=== PATIENT | female | born 1955 | race Native Hawaiian/Other Pacific Islander ===

== ENCOUNTER 2018-02-07 18:58 | Inpatient (IN) | payer MEDICARE, OTHER ==
[~2018-02-07] VITALS: Ht 160 cm; Wt 77.4 kg
[~2018-02-07 18:58] MED LIST: ALBU8.5H8 INH; CARV6.253 PO; FURO40TA4 PO; GLYB2.5T4 PO; LISI10TA4 PO; POTA20TA10 PO
[2018-02-07] MEDS ORDERED: ipratropium/albuterol 3ml nebule NEB ONE ×2 (19:25→22:25)
[2018-02-07 19:41] LABS: BASOPHILS # (AUTO) 0.1 X10'3 (0-0.2); BASOPHILS % (AUTO) 0.5 % (0-1); EOSINOPHILS % (AUTO) 0 % (0-6); HEMATOCRIT 36.9 % (35.0-45.0); HEMOGLOBIN 12.4 g/dl (12.0-16.0); LYMPHOCYTES # (AUTO) 0.9 X10'3 (1.1-4.8); MEAN CORPUSCULAR HEMOGLOBIN 29.6 PG (27.0-31.0); MEAN CORPUSCULAR HGB CONC 33.5 % (33.0-36.5); MEAN CORPUSCULAR VOLUME 88.3 FL (78-98); MEAN PLATELET VOLUME 8.5 FL (7.4-10.4); MONOCYTES # (AUTO) 0.8 X10'3 (0-0.9); MONOCYTES % (AUTO) 6.8 % (2-12); NEUTROPHILS # (AUTO) 9.9 X10'3 (1.8-7.7); NEUTROPHILS % (AUTO) 84.7 % (42-75); PLATELET COUNT 172 X10'3 (140-440); RED BLOOD COUNT 4.18 X10'6 (4.20-5.60); RED CELL DISTRIBUTION WIDTH 14.3 % (11.5-14.5); WHITE BLOOD COUNT 11.7 X10'3 (4.5-11.0)
[2018-02-07 20:01] LABS: ALANINE AMINOTRANSFERASE 36 U/L (12-78); ALBUMIN 3.1 G/DL (3.4-5.0); ALBUMIN/GLOBULIN RATIO 0.7 (1.1-1.5); ALKALINE PHOSPHATASE 128 IU/L (46-116); ANION GAP 14 (8-16); ASPARTATE AMINO TRANSFERASE 37 U/L (10-37); BILIRUBIN,TOTAL 1.4 MG/DL (0.1-1.0); BLOOD UREA NITROGEN 63 MG/DL (7-18); BUN/CREATININE RATIO 33.5 (6.6-38.0); CALCIUM 9.3 MG/DL (8.5-10.1); CHLORIDE 106 MMOL/L (99-107); CREATININE 1.88 MG/DL (0.40-0.90); GLUCOSE 110 MG/DL (70-104); POTASSIUM 4.3 MMOL/L (3.5-5.1); SODIUM 142 MMOL/L (135-145); TOTAL CARBON DIOXIDE 22.4 MMOL/L (24-32); TOTAL PROTEIN 7.5 G/DL (6.4-8.2); eGFR 27 ML/MIN
[2018-02-07 20:06] LABS: PARTIAL THROMBOPLASTIN TIME 32 SECONDS (22-32); PROTHROMBIN TIME 10.1 SECONDS (9.0-12.0)
[2018-02-07] MEDS ORDERED: furosemide 10 MG/1 ML 10ml inj IV ONE (20:30)
[2018-02-07] MEDS ORDERED: DOBUTamine-DoBUTrex 500mg/D5W 250 ML IV PRN (22:00)
[2018-02-07] MEDS ORDERED: normal saline 1000ML IV soln IVB ONE (22:05)
[2018-02-07 22:24] LABS: PLATELET ESTIMATE NORMAL; TOTAL CELLS COUNTED 100; TOXIC GRANULATION 2+; TOXIC VACUOLATION 1+
[2018-02-08] VITALS (14 sets, daily range): BP systolic 95–158; BP diastolic 37–65
[2018-02-08 00:13] LABS: CLARITY,URINE CLOUDY (Clear); GLUCOSE, URINE NEGATIVE (Neg); KETONES,URINE NEGATIVE (Neg); LEUKOCYTE ESTERASE ,URINE SMALL (Neg); NITRITES, URINE NEGATIVE (Neg); OCCULT BLOOD,URINE NEGATIVE (Neg); PROTEIN,URINE 30 mg/dl (Neg)
[2018-02-08 00:24] LABS: COLOR,URINE DARK YELLOW (Yellow); UA COLLECTION TYPE STRAIGHT CATH
[2018-02-08] MEDS: DOBUTamine-DoBUTrex 500mg/D5W 250 ML IV SCH ×2 (00:25→07:35)
[2018-02-08 00:27] LABS: WBC,URINE 20-30 /HPF (0-4)
[2018-02-08 00:28] LABS: BACTERIA,URINE 4+ /HPF (Neg); HYALINE CASTS >30 /LPF (NEGATIVE); MUCUS STRANDS FEW /LPF (Neg); RBC,URINE NONE SEEN /HPF (0-2); SQUAMOUS EPITHELIAL CELL,UR FEW /LPF (FEW); TRANSITIONAL EPI CELLS,URINE FEW /HPF
[2018-02-08 00:29] LABS: WBC CLUMPS,URINE MODERATE /HPF (NEGATIVE)
[2018-02-08] MEDS ORDERED: CefTRIAXone 2gm/D5W 50ml 50 ML IV ONE (06:15)
[2018-02-08 06:26] LABS: ABG BASE EXCESS -4.9 mmol/L (-2.0-3.0); ABG HCO3 21.4 mmol/L (22.0-26.0); ABG OXYGEN SATURATION 92.9 % (95-98); ABG PCO2 (T) 43.6 mmHg (32.0-45.0); ABG PH (T) 7.306 (7.350-7.450); ABG PO2 (T) 69.2 mmHg (83-108); FCOHb 1.1 % (0.5-1.5); FLOW 2 L/min; FMetHb 0.1 % (0.3-1.12); FO2Hb 91.8 % (94-100); PATIENT TEMPERATURE 36.7; RESPIRATORY RATE (OBSERVED) 24 b/min; TOTAL HEMOGLOBIN 12.4 G/dl (12.0-16.0)
[2018-02-08] MEDS ORDERED: lisinopril 2.5mg tablet PO ONE (10:05)
[2018-02-08] MEDS ORDERED: pneumococcal 23-VAL P-sac vacc 25 mcg/0.5ml vial IMVAC ONE (13:00)
[2018-02-08] MEDS: methylPREDNISolone sod succ 125mg/2ml vial IV SCH ×2 (14:37→19:54)
[2018-02-08] MEDS: albuterol 2.5 MG/3 ML nebule NEB PRN ×2 (15:24→22:07)
[2018-02-08] MEDS ORDERED: dextrose 50%-water 50ml dispensing syringe IV PRN ×2 (17:20)
[2018-02-08] MEDS ORDERED: dextrose ORAL solution 15 GM/59 ML bottle PO PRN (17:20)
[2018-02-08] MEDS ORDERED: MESSAGE TO PHARMACY PO ONE (17:20)
[2018-02-08] MEDS ORDERED: glucagon, human recombinant 1mg kit SUBCUT PRN (17:20)
[2018-02-08] MEDS: dextrose ORAL solution 15 GM/59 ML bottle PO PRN ×2 (17:25→17:40)
[2018-02-08] MEDS: lisinopril 2.5mg tablet PO SCH (19:54)
[2018-02-08] MEDS: carVEDilol 3.125mg tablet PO SCH (19:55)
[2018-02-08] MEDS: insulin Lispro (HumaLOG) vial - multi-dose SQ SCH (20:08)
[2018-02-08] MEDS: insulin glargine (Lantus) pen - multi-dose SQ SCH (20:09)
[2018-02-08] MEDS ORDERED: DOBUTamine-DoBUTrex 500mg/D5W 250 ML IV PRN (22:00)
[2018-02-09] VITALS (19 sets, daily range): BP systolic 91–136; BP diastolic 43–77
[2018-02-09] MEDS: methylPREDNISolone sod succ 125mg/2ml vial IV SCH ×2 (02:27→08:14)
[2018-02-09] MEDS ORDERED: HYDROcodone/acetaminophen 10/325mg tab PO PRN (02:45)
[2018-02-09 02:52] LABS: BASOPHILS % (AUTO) 0.1 % (0-1); EOSINOPHILS # (AUTO) 0.1 X10'3 (0-0.9); EOSINOPHILS % (AUTO) 1.1 % (0-6); HEMATOCRIT 34.7 % (35.0-45.0); HEMOGLOBIN 11.5 g/dl (12.0-16.0); LYMPHOCYTES # (AUTO) 0.4 X10'3 (1.1-4.8); LYMPHOCYTES % (AUTO) 4.9 % (21-51); MEAN CORPUSCULAR HEMOGLOBIN 29.7 PG (27.0-31.0); MEAN CORPUSCULAR HGB CONC 33.2 % (33.0-36.5); MEAN CORPUSCULAR VOLUME 89.4 FL (78-98); MEAN PLATELET VOLUME 8.5 FL (7.4-10.4); MONOCYTES # (AUTO) 0.1 X10'3 (0-0.9); MONOCYTES % (AUTO) 0.8 % (2-12); NEUTROPHILS # (AUTO) 7.9 X10'3 (1.8-7.7); NEUTROPHILS % (AUTO) 93.1 % (42-75); PLATELET COUNT 169 X10'3 (140-440); RED BLOOD COUNT 3.88 X10'6 (4.20-5.60); RED CELL DISTRIBUTION WIDTH 14.3 % (11.5-14.5); WHITE BLOOD COUNT 8.5 X10'3 (4.5-11.0)
[2018-02-09] MEDS: guaiFENesin 200 MG/10 ML oral syrup UD cup PO PRN (02:59)
[2018-02-09] MEDS: HYDROcodone/acetaminophen 5mg/325mg tablet PO PRN ×3 (03:00→14:22)
[2018-02-09 03:08] LABS: ALANINE AMINOTRANSFERASE 72 U/L (12-78); ALBUMIN 2.6 G/DL (3.4-5.0); ALBUMIN/GLOBULIN RATIO 0.6 (1.1-1.5); ALKALINE PHOSPHATASE 180 IU/L (46-116); ANION GAP 11 (8-16); ASPARTATE AMINO TRANSFERASE 79 U/L (10-37); BILIRUBIN,TOTAL 0.4 MG/DL (0.1-1.0); BLOOD UREA NITROGEN 46 MG/DL (7-18); BUN/CREATININE RATIO 35.9 (6.6-38.0); CALCIUM 9.3 MG/DL (8.5-10.1); CHLORIDE 108 MMOL/L (99-107); CREATININE 1.28 MG/DL (0.40-0.90); GLUCOSE 229 MG/DL (70-104); MAGNESIUM 2.4 MG/DL (1.5-2.4); POTASSIUM 4.4 MMOL/L (3.5-5.1); SODIUM 143 MMOL/L (135-145); TOTAL CARBON DIOXIDE 23.7 MMOL/L (24-32); TOTAL PROTEIN 7.1 G/DL (6.4-8.2); eGFR 42 ML/MIN
[2018-02-09 03:11] LABS: HEMOGLOBIN A1C 5.6 % (4.5-6.2)
[2018-02-09] MEDS ORDERED: FURO-149 PO (07:34)
[2018-02-09] MEDS ORDERED: GLYB2.5T4 PO (07:34)
[2018-02-09] MEDS ORDERED: CARV-49 PO (07:34)
[2018-02-09] MEDS ORDERED: ALBU8.5H8 INH (07:34)
[2018-02-09] MEDS ORDERED: LISI10TA4 PO (07:34)
[2018-02-09] MEDS ORDERED: POTA-82 PO (07:34)
[2018-02-09] MEDS: carVEDilol 3.125mg tablet PO SCH (08:13)
[2018-02-09] MEDS: lisinopril 2.5mg tablet PO SCH (08:13)
[2018-02-09] MEDS: insulin Lispro (HumaLOG) vial - multi-dose SQ SCH ×2 (08:17→13:13)
[2018-02-09] MEDS ORDERED: CefTRIAXone/D5W-Rocephin 1gm 50 ML IV ONE (11:30)
[2018-02-09] MEDS: albuterol 2.5 MG/3 ML nebule NEB PRN ×2 (11:47→20:58)
[2018-02-09] MEDS: pantoprazole 40mg Tablet.DR PO SCH (12:22)
[2018-02-09] MEDS: heparin, porcine 5000 units/ml vial SQ SCH ×2 (12:22→19:47)
[2018-02-09] MEDS ORDERED: aminophylline 250mg/10ml inj. IV PRN (15:40)
[2018-02-09] MEDS ORDERED: metoprolol tartrate 1mg/ml inj IV PRN (15:40)
[2018-02-09] MEDS ORDERED: nitroGLYCERIN 0.4mg SUBLingual tab SL PRN (15:40)
[2018-02-09] MEDS ORDERED: regadenoson 0.4mg/5ml syringe IV PRN (15:40)
[2018-02-09] MEDS: predniSONE 20 mg tablet PO SCH (19:47)
[2018-02-09] MEDS: losartan 25mg tablet PO SCH (19:48)
[2018-02-09] MEDS: metoprolol tartrate 12.5mg (1/2 tablet) PO SCH (19:48)
[2018-02-09] MEDS: insulin glargine (Lantus) pen - multi-dose SQ SCH (21:44)
[2018-02-10] VITALS (16 sets, daily range): BP systolic 113–155; BP diastolic 51–75
[2018-02-10 05:37] LABS: ALBUMIN 2.5 G/DL (3.4-5.0); ANION GAP 8 (8-16); BLOOD UREA NITROGEN 49 MG/DL (7-18); BUN/CREATININE RATIO 40.5 (6.6-38.0); CALCIUM 9.7 MG/DL (8.5-10.1); CHLORIDE 109 MMOL/L (99-107); CREATININE 1.21 MG/DL (0.40-0.90); GLUCOSE 195 MG/DL (70-104); MAGNESIUM 2.6 MG/DL (1.5-2.4); POTASSIUM 4.7 MMOL/L (3.5-5.1); SODIUM 143 MMOL/L (135-145); TOTAL CARBON DIOXIDE 26.2 MMOL/L (24-32); eGFR 45 ML/MIN
[2018-02-10] MEDS: insulin Lispro (HumaLOG) vial - multi-dose SQ SCH ×3 (07:35→19:27)
[2018-02-10] MEDS: losartan 25mg tablet PO SCH ×2 (07:42→19:28)
[2018-02-10] MEDS: predniSONE 20 mg tablet PO SCH ×2 (07:42→19:28)
[2018-02-10] MEDS: heparin, porcine 5000 units/ml vial SQ SCH ×2 (07:43→19:28)
[2018-02-10] MEDS: pantoprazole 40mg Tablet.DR PO SCH (07:43)
[2018-02-10] MEDS: guaiFENesin 200 MG/10 ML oral syrup UD cup PO PRN (07:53)
[2018-02-10] MEDS: metoprolol tartrate 12.5mg (1/2 tablet) PO SCH ×2 (08:00→19:28)
[2018-02-10] MEDS: albuterol 2.5 MG/3 ML nebule NEB PRN (09:03)
[2018-02-10] MEDS ORDERED: aminophylline inj. 10 ML IV ONE (10:00)
[2018-02-10] MEDS ORDERED: regadenoson 0.4mg/5ml syringe IV ONE (10:01)
[2018-02-10] MEDS ORDERED: LOSA25TA12 PO (12:37)
[2018-02-10] MEDS: insulin glargine (Lantus) pen - multi-dose SQ SCH (21:53)
[2018-02-11 03:00] VITALS: BP 106/55
[2018-02-11 07:00] VITALS: BP 159/74
[2018-02-11] MEDS: losartan 25mg tablet PO SCH (07:31)
[2018-02-11] MEDS: heparin, porcine 5000 units/ml vial SQ SCH (07:31)
[2018-02-11 07:32] VITALS: BP_SYST 159
[2018-02-11] MEDS: metoprolol tartrate 12.5mg (1/2 tablet) PO SCH (07:32)
[2018-02-11] MEDS: pantoprazole 40mg Tablet.DR PO SCH (07:32)
[2018-02-11] MEDS: predniSONE 20 mg tablet PO SCH (07:33)
[2018-02-11] MEDS: insulin Lispro (HumaLOG) vial - multi-dose SQ SCH ×2 (08:19→13:31)
[2018-02-11] MEDS: albuterol 2.5 MG/3 ML nebule NEB PRN (09:47)
[2018-02-11] MEDS: HYDROcodone/acetaminophen 5mg/325mg tablet PO PRN (14:56)
== END 2018-02-11 15:05 | disposition home or self-care (01) | DRG 871 ==
LOC: ER 18:59 → ED HOLD 02-08 07:45 → ICU 2S 02-08 09:42 → PCU 3S 02-09 14:30
PROVIDERS: ADMIT Internal Medicine Critical Care Medicine; ATTEND Internal Medicine Critical Care Medicine
PROC: 06HM33Z Insertion of Infusion Device into Right Femoral Vein, Percutaneous Approach (ICD-10-PCS; 2018-02-07)
PROC: 3E02340 Introduction of Influenza Vaccine into Muscle, Percutaneous Approach (ICD-10-PCS; principal; 2018-02-10)
PROC: 3E0234Z Introduction of Serum, Toxoid and Vaccine into Muscle, Percutaneous Approach (ICD-10-PCS; 2018-02-10)
PROC: 4A02XM4 Measurement of Cardiac Total Activity, External Approach (ICD-10-PCS; 2018-02-10)
PROC: 3E033HZ Introduction of Radioactive Substance into Peripheral Vein, Percutaneous Approach (ICD-10-PCS; 2018-02-10)
DX: A41.9 Sepsis, unspecified organism (principal); I50.23 Acute on chronic systolic (congestive) heart failure; N17.9 Acute kidney failure, unspecified; J44.1 Chronic obstructive pulmonary disease with (acute) exacerbation; N39.0 Urinary tract infection, site not specified; I13.0 Hypertensive heart and chronic kidney disease with heart failure and stage 1 through stage 4 chronic kidney disease, or unspecified chronic kidney disease; N18.9 Chronic kidney disease, unspecified; E07.9 Disorder of thyroid, unspecified; I95.9 Hypotension, unspecified; E11.22 Type 2 diabetes mellitus with diabetic chronic kidney disease; R06.03 Acute respiratory distress; F17.210 Nicotine dependence, cigarettes, uncomplicated; F32.9 Major depressive disorder, single episode, unspecified; F41.9 Anxiety disorder, unspecified; I48.0 Paroxysmal atrial fibrillation; I48.2 Chronic atrial fibrillation; Z23 Encounter for immunization; Z90.710 Acquired absence of both cervix and uterus; Z79.899 Other long term (current) drug therapy; Z87.01 Personal history of pneumonia (recurrent); Z82.5 Family history of asthma and other chronic lower respiratory diseases; Z83.3 Family history of diabetes mellitus
CPT/HCPCS: 36415; 36556; 36600; 70490; 71045; 71250; 74176; 78452; 80048; 80053; 81001; 82803; 82948; 83036; 83605; 83735; 83880; 84484; 85018; 85025; 85610; 85730; 87040; 87070; 87077; 87088; 87186; 90732; 93005; 93017; 93306; 94640; 94667; 94760; 96365; 96375; 97116; 97162; 97530; 99285; A9500; G0378; J0280; J0696; J1250; J1644; J1815; J1940; J2930; J7512; Q2037

== ENCOUNTER 2018-02-14 09:46 | Outpatient (CLI) | payer MEDICARE, OTHER ==
[~2018-02-14 09:46] MED LIST changes: +CARV-49 PO; -CARV6.253 PO; +FURO-149 PO; -FURO40TA4 PO; -LISI10TA4 PO; +LOSA25TA12 PO; +POTA-82 PO; -POTA20TA10 PO
== END 2018-02-14 23:59 | disposition home or self-care (01) ==
LOC: RAD 09:46
PROVIDERS: ATTEND Internal Medicine Critical Care Medicine
DX: E04.1 Nontoxic single thyroid nodule (principal); J44.9 Chronic obstructive pulmonary disease, unspecified; I11.0 Hypertensive heart disease with heart failure; I50.9 Heart failure, unspecified; E11.9 Type 2 diabetes mellitus without complications; Z87.891 Personal history of nicotine dependence
CPT/HCPCS: 78014; A9516

== ENCOUNTER 2019-07-05 22:25 | Emergency (ER) | payer MEDICARE ==
[~2019-07-05] VITALS: Ht 160 cm; Wt 72.0 kg
[~2019-07-05 22:25] MED LIST changes: -LOSA25TA12 PO
[2019-07-05 23:22] LABS: BASOPHILS # (AUTO) 0.1 X10'3 (0-0.2); BASOPHILS % (AUTO) 0.7 % (0-1); EOSINOPHILS % (AUTO) 0.2 % (0-6); HEMATOCRIT 34.7 % (35.0-45.0); HEMOGLOBIN 11.3 g/dl (12.0-16.0); LYMPHOCYTES # (AUTO) 1.2 X10'3 (1.1-4.8); LYMPHOCYTES % (AUTO) 12.9 % (21-51); MEAN CORPUSCULAR HEMOGLOBIN 26.8 PG (27.0-31.0); MEAN CORPUSCULAR HGB CONC 32.4 g/dL (33.0-36.5); MEAN CORPUSCULAR VOLUME 82.5 FL (78-98); MEAN PLATELET VOLUME 7.5 FL (7.4-10.4); MONOCYTES # (AUTO) 0.7 X10'3 (0-0.9); MONOCYTES % (AUTO) 7.9 % (2-12); NEUTROPHILS # (AUTO) 7.3 X10'3 (1.8-7.7); NEUTROPHILS % (AUTO) 78.3 % (42-75); PLATELET COUNT 377 X10'3 (140-440); WHITE BLOOD COUNT 9.3 X10'3 (4.5-11.0)
[2019-07-05 23:26] LABS: ALANINE AMINOTRANSFERASE 12 U/L (12-78); ALBUMIN 2.5 G/DL (3.4-5.0); ALBUMIN/GLOBULIN RATIO 0.5 (1.1-1.5); ALKALINE PHOSPHATASE 236 IU/L (46-116); ANION GAP 9 (8-16); ASPARTATE AMINO TRANSFERASE 30 U/L (10-37); BILIRUBIN,TOTAL 0.3 MG/DL (0.1-1.0); BLOOD UREA NITROGEN 13 MG/DL (7-18); BUN/CREATININE RATIO 12.1 (6.6-38.0); CHLORIDE 108 MMOL/L (99-107); CREATININE 1.07 MG/DL (0.40-0.90); GLUCOSE 137 MG/DL (70-104); POTASSIUM 3.5 MMOL/L (3.5-5.1); SODIUM 142 MMOL/L (135-145); TOTAL CARBON DIOXIDE 25.3 MMOL/L (24-32); TOTAL PROTEIN 7.2 G/DL (6.4-8.2); eGFR 52 ML/MIN
[2019-07-05 23:32] LABS: C-REACTIVE PROTEIN 8.04 MG/DL (0.0-0.5); TROPONIN I < 0.04 NG/ML (0.0-0.05)
[2019-07-06] MEDS ORDERED: acetaminophen 325mg tablet PO ONE (00:05)
[2019-07-06 00:55] VITALS: BP 130/86
== END 2019-07-06 01:02 | disposition home or self-care (01) ==
LOC: ER 22:27
DX: J06.9 Acute upper respiratory infection, unspecified (principal); Z20.828 Contact with and (suspected) exposure to other viral communicable diseases; R07.89 Other chest pain; R05 Cough; R07.81 Pleurodynia; I48.91 Unspecified atrial fibrillation; I11.0 Hypertensive heart disease with heart failure; I50.9 Heart failure, unspecified; J44.9 Chronic obstructive pulmonary disease, unspecified; E11.9 Type 2 diabetes mellitus without complications; F41.9 Anxiety disorder, unspecified; F32.9 Major depressive disorder, single episode, unspecified; Z90.710 Acquired absence of both cervix and uterus; Z72.89 Other problems related to lifestyle; Z79.899 Other long term (current) drug therapy
CPT/HCPCS: 36415; 71045; 80053; 83880; 84145; 84484; 85025; 86140; 87635; 93005; 99285

== ENCOUNTER 2019-12-19 19:00 | Inpatient (IN) | payer MEDICARE, MEDICAID ==
[~2019-12-19] VITALS: Ht 160 cm; Wt 57.6 kg
[~2019-12-19 19:00] MED LIST changes: +ATR0.5NEB NEB; -CARV-49 PO; +CARV6.253 PO; -GLYB2.5T4 PO; +LISI-600 PO
--- NOTE | 2019-12-19 21:42 | NUR ---
PT BP LOW AFTER A FEW ATTEMPTS, 80/44. PRIMARY RN AND PIERRE MEDRANO ALERTED. PLACED PT IN REVERSE TRENDELENBERG. PT REPORTS NO SYMPTOMS AT THIS TIME.
[2019-12-19] MEDS ORDERED: normal saline 1000ML IV soln IVB ONE ×3 (21:55→23:35)
--- NOTE | 2019-12-19 22:01 | NUR ---
CALLED PT DAUGHTER, JAXSON, TO CONFIRM PT STORY. PT ACTUALLY FELL 2 DAYS AGO AND WAS DOWN FOR AN UNKNOWN AMOUNT OF TIME AND DAUGHTER STATES PT DID NOT REMEMBER HOW SHE FELL. SINCE THEN PT HAS BEEN COMPLAINING OF IMMENSE BACK PAIN AND NUMBNESS IN HER LEGS. DAUGHTER STATES PT CAN USUALLY WALK WITH A WALKER JUST FINE, BUT HAS NOT BEEN ABLE TO WALK SINCE THE FALL AND HAVING TROUBLE GETTING IN AND OUT OF BED. PIERRE MEDRANO AND PRIMARY RN AWARE
[2019-12-19 22:22] LABS: BASOPHILS # (AUTO) 0.1 X10'3 (0-0.2); BASOPHILS % (AUTO) 0.3 % (0-1); EOSINOPHILS % (AUTO) 0.2 % (0-6); HEMATOCRIT 30.2 % (35.0-45.0); HEMOGLOBIN 9.4 g/dl (12.0-16.0); LYMPHOCYTES # (AUTO) 1.1 X10'3 (1.1-4.8); LYMPHOCYTES % (AUTO) 4.6 % (21-51); MEAN CORPUSCULAR HEMOGLOBIN 26.2 PG (27.0-31.0); MEAN CORPUSCULAR VOLUME 84.3 FL (78-98); MEAN PLATELET VOLUME 7.1 FL (7.4-10.4); MONOCYTES # (AUTO) 1.3 X10'3 (0-0.9); MONOCYTES % (AUTO) 5.4 % (2-12); NEUTROPHILS # (AUTO) 21.9 X10'3 (1.8-7.7); NEUTROPHILS % (AUTO) 89.5 % (42-75); PLATELET COUNT 369 X10'3 (140-440); RED BLOOD COUNT 3.58 X10'6 (4.20-5.60); WHITE BLOOD COUNT 24.4 X10'3 (4.5-11.0)
[2019-12-19 22:31] LABS: PARTIAL THROMBOPLASTIN TIME 28 SECONDS (22-32)
[2019-12-19 22:33] LABS: ALANINE AMINOTRANSFERASE 10 U/L (12-78); ALBUMIN 2.4 G/DL (3.4-5.0); ALBUMIN/GLOBULIN RATIO 0.5 (1.1-1.5); ALKALINE PHOSPHATASE 115 IU/L (46-116); ANION GAP 7 (8-16); ASPARTATE AMINO TRANSFERASE 17 U/L (10-37); BILIRUBIN,TOTAL 0.8 MG/DL (0.1-1.0); BLOOD UREA NITROGEN 33 MG/DL (7-18); BUN/CREATININE RATIO 15.1 (6.6-38.0); CALCIUM 8.8 MG/DL (8.5-10.1); CHLORIDE 103 MMOL/L (99-107); CREATININE 2.19 MG/DL (0.40-0.90); GLUCOSE 127 MG/DL (70-104); POTASSIUM 3.4 MMOL/L (3.5-5.1); SODIUM 141 MMOL/L (135-145); TOTAL CARBON DIOXIDE 30.6 MMOL/L (24-32); TOTAL PROTEIN 7.3 G/DL (6.4-8.2); eGFR 23 ML/MIN
[2019-12-19] MEDS ORDERED: piperacillin/tazo 3.375gm/50ml 50 ML IV ONE (23:15)
[2019-12-19] MEDS ORDERED: vancomycin/NS 1 GM ADD-VANTAGE 250 ML IV ONE (23:15)
[2019-12-19] MEDS ORDERED: CefTRIAXone/D5W-Rocephin 1gm 50 ML IV ONE (23:35)
[2019-12-19] MEDS ORDERED: azithromycin/NS 500mg/250ml 250 ML IV ONE (23:35)
--- NOTE | 2019-12-19 23:41 | NUR ---
ASSISTING RN WITH PT CARE, PT IS LYING QUIETLY ON GURNEY, RESP EVEN AND SHALLOW, PT OPENS EYES TO VOICE, 2ND LITER NS INFUSING W/O, IN AND OUT CATH DONE WITH STERILE TECHNIQUE, 10ML OF URINE WAS TOTAL OUTPUT, SAMPLE SENT TO LAB, PT MITCH PROCEDURE WELL, CLEANED PT OF SCANT AMOUNT OF DRIED FECES, SKIN BREAKDOWN TO BUTTOCK, PICTURE WAS TAKEN, REPORT TO GIOVANNI TREVINO
[2019-12-20] VITALS (20 sets, daily range): BP systolic 91–127; BP diastolic 46–70
[2019-12-20] LABS: CLARITY,URINE SLIGHTLY CLOUDY (Clear); COLOR,URINE YELLOW (Yellow); GLUCOSE, URINE NEGATIVE (Neg); KETONES,URINE NEGATIVE (Neg); LEUKOCYTE ESTERASE ,URINE NEGATIVE (Neg); NITRITES, URINE NEGATIVE (Neg); OCCULT BLOOD,URINE TRACE-INTACT (Neg); PH,URINE 5.5 (4.8-8.0); PROTEIN,URINE 30 mg/dl (Neg)
[2019-12-20 00:09] LABS: UA COLLECTION TYPE FOLEY CATH
[2019-12-20 00:16] LABS: BACTERIA,URINE FEW /HPF (Neg); RBC,URINE 0-2 /HPF (0-2); SQUAMOUS EPITHELIAL CELL,UR FEW /LPF (FEW); WBC,URINE 0-4 /HPF (0-4)
[2019-12-20] MEDS ORDERED: phenylephrine inj 50 MG in normal saline 250ml IV soln 245 ML IV PRN (02:12)
[2019-12-20] MEDS ORDERED: NORepinephrine 8mg/ 250ml NS 250 ML IV PRN ×2 (02:13→03:01)
[2019-12-20] MEDS ORDERED: ondansetron/PF 4mg/2ml inj IV PRN (03:05)
[2019-12-20] MEDS ORDERED: albuterol 2.5 MG/3 ML nebule NEB PRN (03:05)
[2019-12-20] MEDS ORDERED: acetaminophen 325mg tablet PO PRN (03:05)
[2019-12-20] MEDS ORDERED: acetaminophen 650mg rectal suppository RC PRN (03:05)
--- NOTE | 2019-12-20 04:20 | NUR ---
Received report from Yuval RN and Natanael RN. Transferred via gurney from ED to CICU 2013. All personal belongings placed at bedside. Special Issues communicated to receiving nurse.
[2019-12-20 04:42] LABS: BASOPHILS # (AUTO) 0.1 X10'3 (0-0.2); BASOPHILS % (AUTO) 0.3 % (0-1); EOSINOPHILS % (AUTO) 0.2 % (0-6); HEMATOCRIT 26.9 % (35.0-45.0); HEMOGLOBIN 8.5 g/dl (12.0-16.0); LYMPHOCYTES # (AUTO) 1.2 X10'3 (1.1-4.8); LYMPHOCYTES % (AUTO) 4.4 % (21-51); MEAN CORPUSCULAR HEMOGLOBIN 26.8 PG (27.0-31.0); MEAN CORPUSCULAR HGB CONC 31.6 g/dL (33.0-36.5); MEAN PLATELET VOLUME 7.4 FL (7.4-10.4); MONOCYTES # (AUTO) 1.4 X10'3 (0-0.9); MONOCYTES % (AUTO) 4.9 % (2-12); NEUTROPHILS # (AUTO) 25.3 X10'3 (1.8-7.7); NEUTROPHILS % (AUTO) 90.2 % (42-75); PLATELET COUNT 388 X10'3 (140-440); RED BLOOD COUNT 3.16 X10'6 (4.20-5.60); RED CELL DISTRIBUTION WIDTH 18.4 % (11.5-14.5)
[2019-12-20 04:48] LABS: WHITE BLOOD COUNT 28.1 X10'3 (4.5-11.0)
[2019-12-20] MEDS: normal saline 1000ml 1,000 ML IV SCH ×2 (04:52→16:44)
[2019-12-20 04:58] LABS: ALANINE AMINOTRANSFERASE 8 U/L (12-78); ALBUMIN 1.9 G/DL (3.4-5.0); ALBUMIN/GLOBULIN RATIO 0.4 (1.1-1.5); ALKALINE PHOSPHATASE 165 IU/L (46-116); ANION GAP 6 (8-16); ANISOCYTOSIS 2+; ASPARTATE AMINO TRANSFERASE 14 U/L (10-37); BILIRUBIN,TOTAL 0.6 MG/DL (0.1-1.0); BLOOD UREA NITROGEN 29 MG/DL (7-18); BUN/CREATININE RATIO 16.3 (6.6-38.0); CALCIUM 7.9 MG/DL (8.5-10.1); CHLORIDE 107 MMOL/L (99-107); CREATININE 1.78 MG/DL (0.40-0.90); GLUCOSE 148 MG/DL (70-104); PLATELET ESTIMATE NORMAL; POTASSIUM 3.2 MMOL/L (3.5-5.1); SODIUM 142 MMOL/L (135-145); TOTAL CARBON DIOXIDE 29.3 MMOL/L (24-32); TOTAL CELLS COUNTED 100; TOTAL PROTEIN 6.2 G/DL (6.4-8.2); eGFR 29 ML/MIN
[2019-12-20 05:07] LABS: MAGNESIUM 1.8 MG/DL (1.5-2.4); PHOSPHORUS 4.3 MG/DL (2.3-4.5)
--- NOTE | 2019-12-20 06:20 | NUR ---
Patient in room CICU 2013. I have received report from Emily TREVINO and had the opportunity to ask questions and assume patient care.
--- NOTE | 2019-12-20 06:20 | NUR ---
Problems reprioritized. Patient report given, questions answered & plan of care reviewed with BELINDA Rodríguez.
--- NOTE | 2019-12-20 06:35 | NUR ---
Pt's levophed gtt drip turned down to .09 mcg/kg/min. BP 97/59 (70). Will continue to monitor.
--- NOTE | 2019-12-20 06:45 | NUR ---
Levophed turned down to .08mcg/kg/min. BP 112/58 (75). Will continue to monitor.
--- NOTE | 2019-12-20 08:34 | NUR ---
Levophed decreased to 0.06mcg/kg/min. BP 102/56 (70) Will continue to monitor
[2019-12-20] MEDS: pantoprazole 40 MG vial IV SCH (08:46)
[2019-12-20] MEDS: heparin, porcine 5000 units/ml vial SQ SCH ×2 (08:46→19:27)
[2019-12-20] MEDS: docusate sod 100mg capsule PO SCH ×2 (09:00→19:26)
[2019-12-20] MEDS: ipratropium/albuterol 3ml nebule NEB SCH ×3 (09:33→20:06)
[2019-12-20] MEDS ORDERED: potassium CL 10mEq/100ml bag 100 ML IV PRN (09:50)
[2019-12-20] MEDS ORDERED: magnesium 4gm in 100ml NS 100 ML IV PRN (09:50)
[2019-12-20] MEDS ORDERED: potassium Cl 20 mEq SR tablet PO PRN (09:50)
--- NOTE | 2019-12-20 09:54 | NUR ---
Leveophed decreased to .05mcg/hg/min. BP: 116/58 (87)
[2019-12-20] MEDS: potassium Cl 20 mEq SR tablet PO PRN ×3 (10:10→19:26)
--- NOTE | 2019-12-20 10:38 | NUR ---
Levophed gtt decreased to .04mcg/kg/min. BP: 119/60. Will continue to monitor
--- NOTE | 2019-12-20 11:07 | NUR ---
Levophed gtt decreased to 0.03mcg/kg/min. BP: 107/54 (71) will continue to monitor.
[2019-12-20] MEDS ORDERED: FLUT1BLS12 IH (11:09)
--- NOTE | 2019-12-20 11:33 | NUR ---
Levophed decreased to .02mcg/kg/min. BP: 106/62 (77)
--- NOTE | 2019-12-20 12:39 | NUR ---
Levophed decreased to .01mcg/kg/min. BP: 111/45 (67)
--- NOTE | 2019-12-20 14:15 | NUR ---
Initial: Pt admit with PNA and sepsis. Pt with PMH hx T2DM, current A1c is 5.5% and patient's highest A1c was 6.8% in 2015. No diet order at this time. Recommend PO diet advancement to heart healthy as medically indicated. No documented BM though pt receiving routine bowel care. Will continue to follow closely and monitor need for nutrition intervention pending diet advancement. Recommendations: 1) Advance to heart healthy diet as medically indicated 2) Monitor need for ONS/additional protein with diet advancement 3) Routine bowel care 4) Scaled weights per rx Addendum: 12/20/19 at [address] Amended: Links added.
--- NOTE | 2019-12-20 14:23 | NUR ---
Levophed drip turned off. BP: 99/42 (71) Will continue to monitor Pt
--- NOTE | 2019-12-20 18:08 | NUR ---
Problems reprioritized. Patient report given, questions answered & plan of care reviewed with Emily TREVINO.
[2019-12-20] MEDS: lactobacillus rhamnosus 10,000 MMU CELLS/CAPSULE PO SCH (19:26)
[2019-12-20] MEDS: K and/or MAG REPLACEMENT MC SCH (19:27)
[2019-12-20] MEDS: acetaminophen 325mg tablet PO PRN (19:42)
[2019-12-20] MEDS: furosemide 40mg tablet PO SCH (19:44)
[2019-12-20] MEDS: carvedilol 6.25mg tablet PO SCH (19:44)
[2019-12-20] MEDS: albuterol 2.5 MG/3 ML nebule NEB SCH (20:00)
[2019-12-20] MEDS: budesonide 0.5mg/2ml UD nebule IH SCH (20:06)
[2019-12-20] MEDS ORDERED: glucagon, human recombinant 1mg kit SUBCUT PRN (22:05)
[2019-12-20] MEDS ORDERED: insulin Lispro (HumaLOG) vial - multi-dose SQ SCH (22:05)
[2019-12-20] MEDS ORDERED: dextrose 50%-water 50ml dispensing syringe IV PRN ×2 (22:05)
[2019-12-20] MEDS ORDERED: dextrose ORAL solution 15 GM/59 ML bottle PO PRN ×2 (22:05)
[2019-12-21] VITALS (16 sets, daily range): BP systolic 88–112; BP diastolic 46–71
[2019-12-21] MEDS: CefTRIAXone 2gm/D5W 50ml 50 ML IV SCH ×2 (00:13→22:26)
[2019-12-21] MEDS: albuterol 2.5 MG/3 ML nebule NEB SCH (00:30)
[2019-12-21] MEDS: azithromycin/NS 500mg/250ml 250 ML IV SCH ×2 (00:48→23:56)
[2019-12-21] MEDS: acetaminophen 325mg tablet PO PRN (01:46)
[2019-12-21 03:54] LABS: BASOPHILS # (AUTO) 0.1 X10'3 (0-0.2); BASOPHILS % (AUTO) 0.3 % (0-1); EOSINOPHILS # (AUTO) 0.1 X10'3 (0-0.9); EOSINOPHILS % (AUTO) 0.2 % (0-6); HEMATOCRIT 26.9 % (35.0-45.0); HEMOGLOBIN 8.5 g/dl (12.0-16.0); LYMPHOCYTES # (AUTO) 0.8 X10'3 (1.1-4.8); LYMPHOCYTES % (AUTO) 2.8 % (21-51); MEAN CORPUSCULAR HGB CONC 31.6 g/dL (33.0-36.5); MEAN CORPUSCULAR VOLUME 85.6 FL (78-98); MEAN PLATELET VOLUME 7.9 FL (7.4-10.4); MONOCYTES # (AUTO) 1.1 X10'3 (0-0.9); MONOCYTES % (AUTO) 4.1 % (2-12); NEUTROPHILS # (AUTO) 25.5 X10'3 (1.8-7.7); NEUTROPHILS % (AUTO) 92.6 % (42-75); PLATELET COUNT 318 X10'3 (140-440); RED BLOOD COUNT 3.15 X10'6 (4.20-5.60); RED CELL DISTRIBUTION WIDTH 18.1 % (11.5-14.5)
[2019-12-21 04:02] LABS: WHITE BLOOD COUNT 27.5 X10'3 (4.5-11.0)
[2019-12-21 04:05] LABS: ALANINE AMINOTRANSFERASE 8 U/L (12-78); ALBUMIN 1.9 G/DL (3.4-5.0); ALBUMIN/GLOBULIN RATIO 0.4 (1.1-1.5); ALKALINE PHOSPHATASE 104 IU/L (46-116); ANION GAP 9 (8-16); ASPARTATE AMINO TRANSFERASE 17 U/L (10-37); BILIRUBIN,TOTAL 0.4 MG/DL (0.1-1.0); BLOOD UREA NITROGEN 22 MG/DL (7-18); BUN/CREATININE RATIO 16.9 (6.6-38.0); CALCIUM 8.4 MG/DL (8.5-10.1); CHLORIDE 106 MMOL/L (99-107); GLUCOSE 128 MG/DL (70-104); MAGNESIUM 1.4 MG/DL (1.5-2.4); POTASSIUM 4.1 MMOL/L (3.5-5.1); SODIUM 140 MMOL/L (135-145); TOTAL CARBON DIOXIDE 25.2 MMOL/L (24-32); TOTAL PROTEIN 6.4 G/DL (6.4-8.2); eGFR 41 ML/MIN
--- NOTE | 2019-12-21 06:30 | NUR ---
Patient in room CICU 2013. I have received report from Ngozi Coyle RN and had the opportunity to ask questions and assume patient care.
--- NOTE | 2019-12-21 06:30 | NUR ---
Problems reprioritized. Patient report given, questions answered & plan of care reviewed with BELINDA Akhtar.
[2019-12-21 07:00] LABS: TOTAL CELLS COUNTED 100
[2019-12-21 07:01] LABS: ANISOCYTOSIS 2+; PLATELET ESTIMATE NORMAL
[2019-12-21] MEDS: normal saline 1000ml 1,000 ML IV SCH (08:00)
[2019-12-21] MEDS: K and/or MAG REPLACEMENT MC SCH ×2 (08:00→20:55)
[2019-12-21] MEDS ORDERED: potassium Cl 20 mEq SR tablet PO SCH (08:00)
[2019-12-21] MEDS: pantoprazole 40 MG vial IV SCH (08:14)
[2019-12-21] MEDS: magnesium Cl slow-release 64mg tablet PO PRN ×2 (08:15→19:52)
[2019-12-21] MEDS: heparin, porcine 5000 units/ml vial SQ SCH ×2 (08:15→19:53)
[2019-12-21] MEDS: lactobacillus rhamnosus 10,000 MMU CELLS/CAPSULE PO SCH ×2 (08:15→19:53)
[2019-12-21] MEDS: docusate sod 100mg capsule PO SCH ×2 (08:15→19:53)
[2019-12-21] MEDS: ipratropium/albuterol 3ml nebule NEB SCH ×3 (08:18→20:32)
[2019-12-21] MEDS: budesonide 0.5mg/2ml UD nebule IH SCH ×2 (08:18→20:32)
[2019-12-21] MEDS: furosemide 40mg tablet PO SCH ×2 (09:20→22:29)
[2019-12-21] MEDS: carvedilol 6.25mg tablet PO SCH ×2 (09:21→19:53)
[2019-12-21] MEDS: lisinopril 20mg tablet PO SCH (10:52)
--- NOTE | 2019-12-21 13:00 | NUR ---
Patient urine catheter removed. Patient tolerated well. Education provided.
--- NOTE | 2019-12-21 13:05 | NUR ---
Patient transferred to room 3012B. Tania Alonzo at bedside to receive patient. transfer intervention filed. Patient offers no complaints. Placed on 1L NC.
--- NOTE | 2019-12-21 14:02 | NUR ---
Malnutrition Consult: Pt current bed scale wt 50.5kg down from 77.2kg scaled wt April this year significant loss 32.5% UBW in 7 months. Pt seen by VESNA and does have small stature but no visible signs of muscle/fat wasting at this time. Pt does report decreased appetite at home past few months though no further specifics offered. RD provided ensure ONS coupons to pt since pt is agreeable to Ensure Enlive TIDWM; notified. Pt PO 75% avg so far this admit meeting needs. Will continue to monitor. Recommendations: 1) Continue heart healthy/carb controlled diet as medically indicated; consider liberalization from carb controlled given A1C 5.5 2) Ensure Enlive TIDWM 3) Routine bowel care 4) Scaled weights per rx Addendum: 12/21/19 at [address] Amended: Links added.
[2019-12-21] MEDS: lactose-reduced food (Ensure Enlive) - 237ml bottle PO SCH (18:00)
[2019-12-21] MEDS: nystatin 15 GM powder TP SCH (19:53)
[2019-12-21] MEDS: insulin glargine (Lantus) pen - multi-dose SQ SCH (21:00)
[2019-12-22] VITALS (7 sets, daily range): BP systolic 86–118; BP diastolic 44–56
[2019-12-22] MEDS ORDERED: lactulose 20gm/30ml cup PO PRN (03:05)
[2019-12-22 06:06] LABS: BASOPHILS # (AUTO) 0.1 X10'3 (0-0.2); BASOPHILS % (AUTO) 0.4 % (0-1); EOSINOPHILS # (AUTO) 0.1 X10'3 (0-0.9); EOSINOPHILS % (AUTO) 0.3 % (0-6); HEMATOCRIT 26.8 % (35.0-45.0); HEMOGLOBIN 8.5 g/dl (12.0-16.0); LYMPHOCYTES # (AUTO) 0.8 X10'3 (1.1-4.8); LYMPHOCYTES % (AUTO) 2.9 % (21-51); MEAN CORPUSCULAR HEMOGLOBIN 27.3 PG (27.0-31.0); MEAN CORPUSCULAR HGB CONC 31.8 g/dL (33.0-36.5); MEAN PLATELET VOLUME 7.5 FL (7.4-10.4); MONOCYTES # (AUTO) 0.9 X10'3 (0-0.9); MONOCYTES % (AUTO) 3.6 % (2-12); NEUTROPHILS # (AUTO) 24.6 X10'3 (1.8-7.7); NEUTROPHILS % (AUTO) 92.8 % (42-75); PLATELET COUNT 292 X10'3 (140-440); RED BLOOD COUNT 3.12 X10'6 (4.20-5.60)
--- NOTE | 2019-12-22 06:26 | NUR ---
Patient in room PCU 3012. I have received report from Jai TREVINO and had the opportunity to ask questions and assume patient care.
[2019-12-22 06:29] LABS: WHITE BLOOD COUNT 26.5 X10'3 (4.5-11.0)
[2019-12-22 06:41] LABS: ALBUMIN 1.8 G/DL (3.4-5.0); ALBUMIN/GLOBULIN RATIO 0.4 (1.1-1.5); ALKALINE PHOSPHATASE 106 IU/L (46-116); ANION GAP 6 (8-16); ASPARTATE AMINO TRANSFERASE 12 U/L (10-37); BILIRUBIN,TOTAL 0.3 MG/DL (0.1-1.0); BLOOD UREA NITROGEN 19 MG/DL (7-18); BUN/CREATININE RATIO 16.8 (6.6-38.0); CALCIUM 8.6 MG/DL (8.5-10.1); CHLORIDE 106 MMOL/L (99-107); CREATININE 1.13 MG/DL (0.40-0.90); GLUCOSE 106 MG/DL (70-104); MAGNESIUM 1.8 MG/DL (1.5-2.4); PHOSPHORUS 2.7 MG/DL (2.3-4.5); POTASSIUM 3.7 MMOL/L (3.5-5.1); SODIUM 142 MMOL/L (135-145); TOTAL CARBON DIOXIDE 29.9 MMOL/L (24-32); TOTAL PROTEIN 6.2 G/DL (6.4-8.2); eGFR 48 ML/MIN
[2019-12-22 07:07] LABS: ALANINE AMINOTRANSFERASE 8 U/L (12-78)
[2019-12-22 07:21] LABS: TOTAL CELLS COUNTED 100
[2019-12-22 07:22] LABS: ANISOCYTOSIS 2+; PLATELET ESTIMATE NORMAL; TOXIC GRANULATION 1+
[2019-12-22 07:24] LABS: STOMATOCYTES 1+
[2019-12-22] MEDS: lactose-reduced food (Ensure Enlive) - 237ml bottle PO SCH ×3 (08:00→18:32)
[2019-12-22] MEDS: K and/or MAG REPLACEMENT MC SCH ×2 (08:00→20:00)
[2019-12-22] MEDS: pantoprazole 40mg Tablet.DR PO SCH (09:29)
[2019-12-22] MEDS: docusate sod 100mg capsule PO SCH ×2 (09:29→21:21)
[2019-12-22] MEDS: lisinopril 20mg tablet PO SCH (09:30)
[2019-12-22] MEDS: carvedilol 6.25mg tablet PO SCH ×2 (09:31→21:21)
[2019-12-22] MEDS: lactobacillus rhamnosus 10,000 MMU CELLS/CAPSULE PO SCH ×2 (09:31→21:21)
[2019-12-22] MEDS: potassium Cl 20 mEq SR tablet PO SCH (09:32)
[2019-12-22] MEDS: heparin, porcine 5000 units/ml vial SQ SCH ×2 (09:34→21:20)
[2019-12-22] MEDS: nystatin 15 GM powder TP SCH ×2 (09:35→21:30)
[2019-12-22] MEDS: acetaminophen 325mg tablet PO PRN ×2 (09:42→21:19)
[2019-12-22] MEDS: furosemide 40mg tablet PO SCH ×2 (09:43→21:20)
[2019-12-22] MEDS: budesonide 0.5mg/2ml UD nebule IH SCH ×2 (09:52→20:16)
[2019-12-22] MEDS: ipratropium/albuterol 3ml nebule NEB SCH ×3 (09:52→20:16)
[2019-12-22] MEDS: normal saline 1000ml 1,000 ML IV SCH ×2 (10:19→21:26)
[2019-12-22] MEDS: vancomycin/NS 1 GM ADD-VANTAGE 250 ML IV SCH (16:15)
--- NOTE | 2019-12-22 18:32 | NUR ---
Problems reprioritized. Patient report given, questions answered & plan of care reviewed with LANI TREVINO.
--- NOTE | 2019-12-22 18:33 | NUR ---
Problems reprioritized. Patient report given, questions answered & plan of care reviewed with LANI TREVINO.
--- NOTE | 2019-12-22 18:35 | NUR ---
Patient in room PCU 3012. I have received report from LUIS ANGEL TREVINO and had the opportunity to ask questions and assume patient care.
[2019-12-22] MEDS: CefTRIAXone 2gm/D5W 50ml 50 ML IV SCH (22:16)
[2019-12-22] MEDS: insulin glargine (Lantus) pen - multi-dose SQ SCH (22:19)
[2019-12-23] MEDS: azithromycin/NS 500mg/250ml 250 ML IV SCH ×2 (00:07→23:58)
[2019-12-23 03:00] VITALS: BP 101/49
[2019-12-23 06:00] VITALS: BP 86/49
[2019-12-23 06:15] LABS: BASOPHILS # (AUTO) 0.1 X10'3 (0-0.2); BASOPHILS % (AUTO) 0.3 % (0-1); EOSINOPHILS # (AUTO) 0.1 X10'3 (0-0.9); EOSINOPHILS % (AUTO) 0.4 % (0-6); HEMATOCRIT 25.1 % (35.0-45.0); HEMOGLOBIN 7.7 g/dl (12.0-16.0); LYMPHOCYTES % (AUTO) 4.3 % (21-51); MEAN CORPUSCULAR HGB CONC 30.8 g/dL (33.0-36.5); MEAN CORPUSCULAR VOLUME 84.5 FL (78-98); MEAN PLATELET VOLUME 7.7 FL (7.4-10.4); MONOCYTES # (AUTO) 0.8 X10'3 (0-0.9); MONOCYTES % (AUTO) 3.5 % (2-12); NEUTROPHILS # (AUTO) 21.4 X10'3 (1.8-7.7); NEUTROPHILS % (AUTO) 91.5 % (42-75); PLATELET COUNT 276 X10'3 (140-440); RED BLOOD COUNT 2.97 X10'6 (4.20-5.60); RED CELL DISTRIBUTION WIDTH 18.8 % (11.5-14.5); WHITE BLOOD COUNT 23.4 X10'3 (4.5-11.0)
[2019-12-23 06:26] LABS: ALBUMIN 1.6 G/DL (3.4-5.0); ALBUMIN/GLOBULIN RATIO 0.4 (1.1-1.5); ALKALINE PHOSPHATASE 117 IU/L (46-116); ANION GAP 8 (8-16); ASPARTATE AMINO TRANSFERASE 11 U/L (10-37); BILIRUBIN,TOTAL 0.2 MG/DL (0.1-1.0); BLOOD UREA NITROGEN 19 MG/DL (7-18); BUN/CREATININE RATIO 15.3 (6.6-38.0); CALCIUM 8.2 MG/DL (8.5-10.1); CHLORIDE 106 MMOL/L (99-107); CREATININE 1.24 MG/DL (0.40-0.90); GLUCOSE 107 MG/DL (70-104); MAGNESIUM 1.7 MG/DL (1.5-2.4); PHOSPHORUS 3.2 MG/DL (2.3-4.5); POTASSIUM 3.6 MMOL/L (3.5-5.1); SODIUM 145 MMOL/L (135-145); TOTAL CARBON DIOXIDE 30.9 MMOL/L (24-32); TOTAL PROTEIN 5.9 G/DL (6.4-8.2); eGFR 43 ML/MIN
--- NOTE | 2019-12-23 06:29 | NUR ---
Problems reprioritized. Patient report given, questions answered & plan of care reviewed with LUIS MIGUEL TREVINO.
--- NOTE | 2019-12-23 06:29 | NUR ---
Patient in room PCU 3012. I have received report from Luli TREVINO and had the opportunity to ask questions and assume patient care.
[2019-12-23 07:02] LABS: ALANINE AMINOTRANSFERASE 6 U/L (12-78)
[2019-12-23] MEDS: K and/or MAG REPLACEMENT MC SCH ×2 (07:25→20:00)
[2019-12-23] MEDS: budesonide 0.5mg/2ml UD nebule IH SCH ×2 (07:30→21:06)
[2019-12-23] MEDS: ipratropium/albuterol 3ml nebule NEB SCH ×3 (07:30→21:06)
[2019-12-23 08:00] VITALS: BP 93/50
[2019-12-23] MEDS: lisinopril 20mg tablet PO SCH (08:00)
[2019-12-23] MEDS: furosemide 40mg tablet PO SCH ×2 (08:00→20:42)
[2019-12-23] MEDS: lactobacillus rhamnosus 10,000 MMU CELLS/CAPSULE PO SCH ×2 (08:25→20:42)
[2019-12-23] MEDS: docusate sod 100mg capsule PO SCH ×2 (08:28→20:42)
[2019-12-23] MEDS: potassium Cl 20 mEq SR tablet PO SCH (08:28)
[2019-12-23] MEDS: pantoprazole 40mg Tablet.DR PO SCH (08:29)
[2019-12-23] MEDS: carvedilol 6.25mg tablet PO SCH ×2 (08:29→20:42)
[2019-12-23] MEDS: heparin, porcine 5000 units/ml vial SQ SCH ×2 (08:30→20:44)
[2019-12-23] MEDS: nystatin 15 GM powder TP SCH ×2 (08:30→20:42)
[2019-12-23] MEDS: lactose-reduced food (Ensure Enlive) - 237ml bottle PO SCH ×3 (08:31→18:10)
[2019-12-23 09:29] LABS: ANISOCYTOSIS 2+; PLATELET ESTIMATE NORMAL; POLYCHROMASIA 1+; ROULEAUX 1+; TOTAL CELLS COUNTED 100; TOXIC GRANULATION 1+
[2019-12-23 11:00] VITALS: BP 128/44
[2019-12-23] MEDS: vancomycin/NS 1 GM ADD-VANTAGE 250 ML IV SCH (17:01)
--- NOTE | 2019-12-23 18:34 | NUR ---
Problems reprioritized. Patient report given, questions answered & plan of care reviewed with Caron TREVINO.
[2019-12-23 19:00] VITALS: BP 114/52
[2019-12-23] MEDS: insulin glargine (Lantus) pen - multi-dose SQ SCH (21:00)
[2019-12-23] MEDS: CefTRIAXone 2gm/D5W 50ml 50 ML IV SCH (22:00)
[2019-12-23 23:00] VITALS: BP 77/40
[2019-12-24] VITALS (9 sets, daily range): BP systolic 81–98; BP diastolic 36–56
[2019-12-24 05:51] LABS: BASOPHILS # (AUTO) 0.1 X10'3 (0-0.2); BASOPHILS % (AUTO) 0.5 % (0-1); EOSINOPHILS % (AUTO) 0.2 % (0-6); HEMATOCRIT 26.1 % (35.0-45.0); HEMOGLOBIN 7.9 g/dl (12.0-16.0); LYMPHOCYTES % (AUTO) 4.8 % (21-51); MEAN CORPUSCULAR HEMOGLOBIN 26.2 PG (27.0-31.0); MEAN CORPUSCULAR HGB CONC 30.4 g/dL (33.0-36.5); MEAN CORPUSCULAR VOLUME 86.3 FL (78-98); MONOCYTES # (AUTO) 0.8 X10'3 (0-0.9); MONOCYTES % (AUTO) 3.8 % (2-12); NEUTROPHILS # (AUTO) 19.5 X10'3 (1.8-7.7); NEUTROPHILS % (AUTO) 90.7 % (42-75); PLATELET COUNT 258 X10'3 (140-440); RED BLOOD COUNT 3.02 X10'6 (4.20-5.60); RED CELL DISTRIBUTION WIDTH 18.2 % (11.5-14.5); WHITE BLOOD COUNT 21.5 X10'3 (4.5-11.0)
[2019-12-24 06:17] LABS: ALANINE AMINOTRANSFERASE 7 U/L (12-78); ALBUMIN 1.7 G/DL (3.4-5.0); ALBUMIN/GLOBULIN RATIO 0.4 (1.1-1.5); ALKALINE PHOSPHATASE 134 IU/L (46-116); ANION GAP 7 (8-16); ASPARTATE AMINO TRANSFERASE 13 U/L (10-37); BILIRUBIN,TOTAL 0.2 MG/DL (0.1-1.0); BLOOD UREA NITROGEN 20 MG/DL (7-18); BUN/CREATININE RATIO 17.5 (6.6-38.0); CALCIUM 8.6 MG/DL (8.5-10.1); CHLORIDE 106 MMOL/L (99-107); CREATININE 1.14 MG/DL (0.40-0.90); GLUCOSE 113 MG/DL (70-104); MAGNESIUM 1.7 MG/DL (1.5-2.4); PHOSPHORUS 3.4 MG/DL (2.3-4.5); POTASSIUM 3.8 MMOL/L (3.5-5.1); SODIUM 144 MMOL/L (135-145); TOTAL CARBON DIOXIDE 30.6 MMOL/L (24-32); TOTAL PROTEIN 6.2 G/DL (6.4-8.2); eGFR 48 ML/MIN
--- NOTE | 2019-12-24 06:38 | NUR ---
Patient in room PCU 3012. I have received report from BELINDA Reardon and had the opportunity to ask questions and assume patient care.
[2019-12-24] MEDS: ipratropium/albuterol 3ml nebule NEB SCH ×3 (07:10→20:26)
[2019-12-24] MEDS: budesonide 0.5mg/2ml UD nebule IH SCH ×2 (07:11→20:26)
[2019-12-24] MEDS: carvedilol 6.25mg tablet PO SCH ×2 (08:00→19:22)
[2019-12-24] MEDS: furosemide 40mg tablet PO SCH ×2 (08:00→19:21)
[2019-12-24] MEDS: docusate sod 100mg capsule PO SCH ×2 (08:00→19:22)
[2019-12-24] MEDS: K and/or MAG REPLACEMENT MC SCH ×2 (08:00→19:22)
[2019-12-24] MEDS: lisinopril 20mg tablet PO SCH (08:00)
[2019-12-24] MEDS: lactobacillus rhamnosus 10,000 MMU CELLS/CAPSULE PO SCH ×2 (08:00→19:20)
[2019-12-24] MEDS: lactose-reduced food (Ensure Enlive) - 237ml bottle PO SCH ×3 (09:00→18:25)
[2019-12-24] MEDS: potassium Cl 20 mEq SR tablet PO SCH (09:00)
[2019-12-24] MEDS: heparin, porcine 5000 units/ml vial SQ SCH ×2 (09:00→19:21)
[2019-12-24] MEDS: nystatin 15 GM powder TP SCH ×2 (09:00→19:21)
[2019-12-24] MEDS: normal saline 1000ml 1,000 ML IV SCH (09:01)
[2019-12-24] MEDS: pantoprazole 40mg Tablet.DR PO SCH (09:03)
[2019-12-24] MEDS: acetaminophen 325mg tablet PO PRN (09:03)
[2019-12-24] MEDS ORDERED: normal saline 1000ml 1,000 ML IV ONE (14:55)
--- NOTE | 2019-12-24 14:59 | NUR ---
Patient hypotensive, BP 81/43. Pt placed in trelenburg position, new order from Benny for 500 ml NS bolus. Will administer and continue to monitor closely
--- NOTE | 2019-12-24 15:14 | NUR ---
Reassessment: Pt PO 0-25% ensure enlive and 50-75% avg meals overall meeting needs. AOx2 refusing all meds except for protonix and K-DUR today. LBM 12/22. Will continue to monitor for additional protein/kcal needs. Recommendations: 1) Continue heart healthy/carb controlled diet as medically indicated; consider liberalization from carb controlled given A1C 5.5 2) Ensure Enlive TIDWM 3) Routine bowel care 4) Scaled weights per rx Addendum: 12/24/19 at [address] Amended: Links added.
--- NOTE | 2019-12-24 15:38 | NUR ---
s/p 500cc bolus BP 96/53.
[2019-12-24] MEDS: vancomycin/NS 1 GM ADD-VANTAGE 250 ML IV SCH (16:01)
--- NOTE | 2019-12-24 18:00 | NUR ---
Patient in room PCU 3012. I have received report from Lisa TREVINO and had the opportunity to ask questions and assume patient care.
--- NOTE | 2019-12-24 18:25 | NUR ---
Problems reprioritized. Patient report given, questions answered & plan of care reviewed with BELINDA Bhat. Pt stable at transfer of care.
[2019-12-24] MEDS ORDERED: HYDROcodone/acetaminophen 10/325mg tab PO PRN (20:15)
[2019-12-24] MEDS: HYDROcodone/acetaminophen 5mg/325mg tablet PO PRN (20:36)
[2019-12-24] MEDS: insulin glargine (Lantus) pen - multi-dose SQ SCH (21:00)
[2019-12-24] MEDS: CefTRIAXone 2gm/D5W 50ml 50 ML IV SCH (21:14)
[2019-12-24] MEDS: azithromycin/NS 500mg/250ml 250 ML IV SCH (23:16)
[2019-12-25] VITALS (15 sets, daily range): BP systolic 96–173; BP diastolic 51–99
[2019-12-25 05:26] LABS: BASOPHILS # (AUTO) 0.1 X10'3 (0-0.2); BASOPHILS % (AUTO) 0.4 % (0-1); EOSINOPHILS # (AUTO) 0.1 X10'3 (0-0.9); EOSINOPHILS % (AUTO) 0.3 % (0-6); HEMATOCRIT 27.6 % (35.0-45.0); HEMOGLOBIN 8.4 g/dl (12.0-16.0); LYMPHOCYTES % (AUTO) 3.6 % (21-51); MEAN CORPUSCULAR HEMOGLOBIN 26.1 PG (27.0-31.0); MEAN CORPUSCULAR HGB CONC 30.5 g/dL (33.0-36.5); MEAN CORPUSCULAR VOLUME 85.6 FL (78-98); MEAN PLATELET VOLUME 7.9 FL (7.4-10.4); MONOCYTES % (AUTO) 3.7 % (2-12); NEUTROPHILS # (AUTO) 24.5 X10'3 (1.8-7.7); PLATELET COUNT 305 X10'3 (140-440); RED BLOOD COUNT 3.22 X10'6 (4.20-5.60); RED CELL DISTRIBUTION WIDTH 18.6 % (11.5-14.5)
[2019-12-25 05:40] LABS: WHITE BLOOD COUNT 26.6 X10'3 (4.5-11.0)
--- NOTE | 2019-12-25 05:47 | NUR ---
Critical WBC First attempt to call SHASIH Long for Critical WBC 26.6
--- NOTE | 2019-12-25 05:51 | NUR ---
Critical relayed to SHASHI Long: WBC 26.6 No new orders.
[2019-12-25 06:00] LABS: ALANINE AMINOTRANSFERASE 7 U/L (12-78); ALBUMIN 1.7 G/DL (3.4-5.0); ALBUMIN/GLOBULIN RATIO 0.3 (1.1-1.5); ALKALINE PHOSPHATASE 155 IU/L (46-116); ANION GAP 9 (8-16); ASPARTATE AMINO TRANSFERASE 14 U/L (10-37); BILIRUBIN,TOTAL 0.2 MG/DL (0.1-1.0); BLOOD UREA NITROGEN 20 MG/DL (7-18); BUN/CREATININE RATIO 19.8 (6.6-38.0); CALCIUM 9.1 MG/DL (8.5-10.1); CHLORIDE 107 MMOL/L (99-107); CREATININE 1.01 MG/DL (0.40-0.90); GLUCOSE 117 MG/DL (70-104); MAGNESIUM 1.9 MG/DL (1.5-2.4); PHOSPHORUS 2.7 MG/DL (2.3-4.5); SODIUM 144 MMOL/L (135-145); TOTAL CARBON DIOXIDE 27.7 MMOL/L (24-32); TOTAL PROTEIN 6.7 G/DL (6.4-8.2); eGFR 55 ML/MIN
--- NOTE | 2019-12-25 06:30 | NUR ---
Patient in room PCU 3012. I have received report from Perlita TREVINO and had the opportunity to ask questions and assume patient care.
--- NOTE | 2019-12-25 06:38 | NUR ---
Problems reprioritized. Patient report given, questions answered & plan of care reviewed with Lisa TREVINO.
[2019-12-25] MEDS: HYDROcodone/acetaminophen 5mg/325mg tablet PO PRN ×2 (07:55→15:30)
[2019-12-25] MEDS: furosemide 40mg tablet PO SCH ×2 (07:55→20:00)
[2019-12-25] MEDS: pantoprazole 40mg Tablet.DR PO SCH (07:56)
[2019-12-25] MEDS: carvedilol 6.25mg tablet PO SCH ×2 (07:58→20:00)
[2019-12-25] MEDS: nystatin 15 GM powder TP SCH ×2 (07:58→20:45)
[2019-12-25] MEDS: lisinopril 20mg tablet PO SCH (07:58)
[2019-12-25] MEDS: heparin, porcine 5000 units/ml vial SQ SCH ×3 (07:58→20:45)
[2019-12-25] MEDS: lactobacillus rhamnosus 10,000 MMU CELLS/CAPSULE PO SCH ×2 (07:58→20:44)
[2019-12-25] MEDS: potassium Cl 20 mEq SR tablet PO SCH (07:58)
[2019-12-25] MEDS: docusate sod 100mg capsule PO SCH ×2 (08:00→20:44)
[2019-12-25 08:01] LABS: ANISOCYTOSIS 2+; PLATELET ESTIMATE NORMAL; TOTAL CELLS COUNTED 100; TOXIC GRANULATION 2+
[2019-12-25 08:02] LABS: HYPOCHROMASIA 2+
[2019-12-25 08:03] LABS: ELLIPTOCYTES FEW; POLYCHROMASIA FEW; TOXIC VACUOLATION FEW
[2019-12-25] MEDS: K and/or MAG REPLACEMENT MC SCH ×2 (08:12→20:00)
[2019-12-25] MEDS: lactose-reduced food (Ensure Enlive) - 237ml bottle PO SCH ×3 (08:13→18:00)
[2019-12-25] MEDS: budesonide 0.5mg/2ml UD nebule IH SCH ×2 (08:26→20:56)
[2019-12-25] MEDS: ipratropium/albuterol 3ml nebule NEB SCH ×3 (08:26→20:57)
[2019-12-25] MEDS ORDERED: tPA-cathflo 2 MG/2 ml IV flush ONE (14:11)
[2019-12-25] MEDS ORDERED: VANCOMYCIN LEVEL IV ONE ×3 (14:30→15:00)
--- NOTE | 2019-12-25 15:03 | NUR ---
Pt. returned with chest tube in place to right side. Pt. was visibly SOB, saturations in the 70's. IR nurses at bedside. Increased oxygen to 11 liters via NC. Pt. was originally going to be to water seal for 12 hrs but due to dyspnea, she was placed on suction per MD instructions. 160 ml's out at 1450. Patients oxygen saturations increased to 100% and her WOB has decreased. CXR obtained and appears normal. Oxygen saturations are 96% currently and she declines SOB.
[2019-12-25] MEDS: vancomycin/NS 1 GM ADD-VANTAGE 250 ML IV SCH (15:30)
--- NOTE | 2019-12-25 18:00 | NUR ---
Patient in room PCU 3012. I have received report from Lisa TREVINO and had the opportunity to ask questions and assume patient care.
--- NOTE | 2019-12-25 18:41 | NUR ---
Problems reprioritized. Patient report given, questions answered & plan of care reviewed with BELINDA Bhat.
[2019-12-25] MEDS: insulin glargine (Lantus) pen - multi-dose SQ SCH (21:00)
--- NOTE | 2019-12-25 21:06 | NUR ---
I was unable to get heart rate and SpO2 on patient because her hands are cold. Patient is on 2L NC and is resting comfortably. Respiratory rate is 16 and lung sounds are clear and diminished throughout.
[2019-12-25] MEDS: CefTRIAXone 2gm/D5W 50ml 50 ML IV SCH (22:38)
[2019-12-26] VITALS (7 sets, daily range): BP systolic 81–107; BP diastolic 44–57
[2019-12-26 05:01] LABS: BASOPHILS # (AUTO) 0.1 X10'3 (0-0.2); BASOPHILS % (AUTO) 0.5 % (0-1); EOSINOPHILS # (AUTO) 0.1 X10'3 (0-0.9); EOSINOPHILS % (AUTO) 0.3 % (0-6); HEMATOCRIT 24.3 % (35.0-45.0); HEMOGLOBIN 7.6 g/dl (12.0-16.0); LYMPHOCYTES # (AUTO) 1.2 X10'3 (1.1-4.8); LYMPHOCYTES % (AUTO) 4.9 % (21-51); MEAN CORPUSCULAR HEMOGLOBIN 26.7 PG (27.0-31.0); MEAN CORPUSCULAR HGB CONC 31.2 g/dL (33.0-36.5); MEAN CORPUSCULAR VOLUME 85.8 FL (78-98); MEAN PLATELET VOLUME 7.7 FL (7.4-10.4); MONOCYTES % (AUTO) 4.3 % (2-12); NEUTROPHILS # (AUTO) 21.3 X10'3 (1.8-7.7); PLATELET COUNT 272 X10'3 (140-440); RED BLOOD COUNT 2.84 X10'6 (4.20-5.60); RED CELL DISTRIBUTION WIDTH 18.3 % (11.5-14.5); WHITE BLOOD COUNT 23.7 X10'3 (4.5-11.0)
[2019-12-26 05:13] LABS: ALANINE AMINOTRANSFERASE 10 U/L (12-78); ALBUMIN 1.6 G/DL (3.4-5.0); ALBUMIN/GLOBULIN RATIO 0.4 (1.1-1.5); ALKALINE PHOSPHATASE 181 IU/L (46-116); ANION GAP 4 (8-16); ASPARTATE AMINO TRANSFERASE 12 U/L (10-37); BILIRUBIN,TOTAL 0.2 MG/DL (0.1-1.0); BLOOD UREA NITROGEN 19 MG/DL (7-18); CALCIUM 8.7 MG/DL (8.5-10.1); CHLORIDE 106 MMOL/L (99-107); CREATININE 1.12 MG/DL (0.40-0.90); GLUCOSE 134 MG/DL (70-104); PHOSPHORUS 3.6 MG/DL (2.3-4.5); POTASSIUM 3.9 MMOL/L (3.5-5.1); SODIUM 143 MMOL/L (135-145); TOTAL CARBON DIOXIDE 32.7 MMOL/L (24-32); TOTAL PROTEIN 6.1 G/DL (6.4-8.2); eGFR 49 ML/MIN
--- NOTE | 2019-12-26 05:35 | NUR ---
END NOC NOTE Patient refused repositioning all night, is able to move independently in bed. Chest tube is still patent. No pain all shift. Drank all ensure for dinner. Will continue to monitor.
--- NOTE | 2019-12-26 06:30 | NUR ---
Patient in room PCU 3012. I have received report from Ayaka TREIVNO and had the opportunity to ask questions and assume patient care. Patient in bed and resting comfortably. In no acute distress. CT in place to right lateral side to wall suction. Will continue to monitor.
--- NOTE | 2019-12-26 06:30 | NUR ---
Patient in room PCU 3012. I have received report from BELINDA Mar. and had the opportunity to ask questions and assume patient care.
[2019-12-26] MEDS: docusate sod 100mg capsule PO SCH ×2 (08:00→20:00)
[2019-12-26] MEDS: K and/or MAG REPLACEMENT MC SCH ×2 (08:00→20:00)
[2019-12-26] MEDS: furosemide 40mg tablet PO SCH ×2 (08:00→20:00)
[2019-12-26] MEDS: lactobacillus rhamnosus 10,000 MMU CELLS/CAPSULE PO SCH ×2 (08:37→20:00)
[2019-12-26] MEDS: HYDROcodone/acetaminophen 5mg/325mg tablet PO PRN ×2 (08:37→23:32)
[2019-12-26] MEDS: pantoprazole 40mg Tablet.DR PO SCH (08:38)
[2019-12-26] MEDS: potassium Cl 20 mEq SR tablet PO SCH (08:38)
[2019-12-26] MEDS: carvedilol 6.25mg tablet PO SCH ×2 (08:39→20:00)
[2019-12-26] MEDS: lisinopril 20mg tablet PO SCH (08:40)
[2019-12-26] MEDS: heparin, porcine 5000 units/ml vial SQ SCH ×2 (08:41→20:00)
[2019-12-26] MEDS: nystatin 15 GM powder TP SCH ×2 (08:44→20:53)
[2019-12-26] MEDS: budesonide 0.5mg/2ml UD nebule IH SCH ×2 (08:46→21:09)
[2019-12-26] MEDS: ipratropium/albuterol 3ml nebule NEB SCH ×3 (08:46→21:09)
[2019-12-26] MEDS: lactose-reduced food (Ensure Enlive) - 237ml bottle PO SCH ×3 (08:47→18:58)
[2019-12-26] MEDS ORDERED: tPA-cathflo 2mg/2ml IV flush 4 MG in normal saline 100ml IV soln 50 ML ICATH ONE (09:45)
--- NOTE | 2019-12-26 10:20 | NUR ---
Cath flow administered by MARCELA Encarnacion.
--- NOTE | 2019-12-26 13:42 | NUR ---
Spoke to pharmacist regarding Vanco trough. Stated to give prescribed dose.
[2019-12-26] MEDS: vancomycin/NS 1 GM ADD-VANTAGE 250 ML IV SCH (15:22)
[2019-12-26 16:10] LABS: LDH,BODY FLUID 283 U/L; TOTAL PROTEIN,BODY FLUID 3.1 G/DL
[2019-12-26 16:39] LABS: LYMPHOCYTES,BODY FLUID 52 %; MONOCYTES,BODY FLUID 3 %; NEUTROPHILS,BODY FLUID 45 %
[2019-12-26 16:47] LABS: BF RBC COUNT 73400 /CU MM; BF WBC COUNT 1640 /CU MM (0-1000); BFAPPEAR BLOODY; BFCOLOR RED; BFVOLUME 50 ML
--- NOTE | 2019-12-26 18:16 | NUR ---
Problems reprioritized. Patient report given, questions answered & plan of care reviewed with Perlita TREVINO. Patient stable at transfer of care.
--- NOTE | 2019-12-26 18:30 | NUR ---
Problems reprioritized. Patient report given to BELINDA Mar, questions answered & plan of care reviewed. Care plan followed, medications administered as ordered. Safety measures in place, bed in low and locked position. Call light and personal items within reach. Will continue to monitor for remainder of shift.
--- NOTE | 2019-12-26 18:32 | NUR ---
[place] documentation: I have reviewed and agree with all interventions, assessments performed and documented by BELINDA Stacy. [place] Medication Administration: For this medication-pass time frame, all medication were reviewed, dispensed, administered and documented per hospital policy by Regis TREVINO.
[2019-12-26] MEDS: insulin glargine (Lantus) pen - multi-dose SQ SCH (21:00)
[2019-12-26] MEDS: CefTRIAXone 2gm/D5W 50ml 50 ML IV SCH (21:15)
--- NOTE | 2019-12-26 21:17 | NUR ---
I was not able to get heart rate or SpO2. Patient is on 2L NC and is resting comfortably.
[2019-12-27 02:00] VITALS: BP 99/57
--- NOTE | 2019-12-27 03:56 | NUR ---
Patient in room PCU 3012. I have received report from Ally TREVINO and had the opportunity to ask questions and assume patient care.
[2019-12-27 05:18] LABS: BASOPHILS # (AUTO) 0.1 X10'3 (0-0.2); BASOPHILS % (AUTO) 0.2 % (0-1); EOSINOPHILS # (AUTO) 0.1 X10'3 (0-0.9); EOSINOPHILS % (AUTO) 0.3 % (0-6); HEMOGLOBIN 7.6 g/dl (12.0-16.0); LYMPHOCYTES # (AUTO) 0.9 X10'3 (1.1-4.8); LYMPHOCYTES % (AUTO) 3.7 % (21-51); MEAN CORPUSCULAR HEMOGLOBIN 25.8 PG (27.0-31.0); MEAN CORPUSCULAR HGB CONC 30.3 g/dL (33.0-36.5); MEAN CORPUSCULAR VOLUME 85.1 FL (78-98); MEAN PLATELET VOLUME 7.6 FL (7.4-10.4); MONOCYTES % (AUTO) 4.1 % (2-12); NEUTROPHILS # (AUTO) 23.2 X10'3 (1.8-7.7); NEUTROPHILS % (AUTO) 91.7 % (42-75); PLATELET COUNT 267 X10'3 (140-440); RED BLOOD COUNT 2.93 X10'6 (4.20-5.60); RED CELL DISTRIBUTION WIDTH 18.3 % (11.5-14.5)
[2019-12-27 05:21] LABS: WHITE BLOOD COUNT 25.2 X10'3 (4.5-11.0)
[2019-12-27 05:31] LABS: ALANINE AMINOTRANSFERASE 8 U/L (12-78); ALBUMIN 1.4 G/DL (3.4-5.0); ALBUMIN/GLOBULIN RATIO 0.3 (1.1-1.5); ALKALINE PHOSPHATASE 218 IU/L (46-116); ANION GAP 4 (8-16); ASPARTATE AMINO TRANSFERASE 14 U/L (10-37); BILIRUBIN,TOTAL 0.2 MG/DL (0.1-1.0); BLOOD UREA NITROGEN 21 MG/DL (7-18); BUN/CREATININE RATIO 19.6 (6.6-38.0); CALCIUM 8.6 MG/DL (8.5-10.1); CHLORIDE 106 MMOL/L (99-107); CREATININE 1.07 MG/DL (0.40-0.90); GLUCOSE 188 MG/DL (70-104); MAGNESIUM 1.9 MG/DL (1.5-2.4); PHOSPHORUS 2.6 MG/DL (2.3-4.5); SODIUM 142 MMOL/L (135-145); TOTAL CARBON DIOXIDE 31.9 MMOL/L (24-32); TOTAL PROTEIN 5.9 G/DL (6.4-8.2); eGFR 51 ML/MIN
--- NOTE | 2019-12-27 05:34 | NUR ---
Critical WBC Attempted to call [facility], no call back at this time.
--- NOTE | 2019-12-27 06:08 | NUR ---
Problems reprioritized. Patient report given, questions answered & plan of care reviewed with Ally TREVINO.
--- NOTE | 2019-12-27 06:32 | NUR ---
Patient in room PCU 3012. I have received report from Perlita TREVINO and had the opportunity to ask questions and assume patient care. Patient asleep and resting. In no acute distress. All immediate needs met at this time.
[2019-12-27 06:47] LABS: TOTAL CELLS COUNTED 100
[2019-12-27 06:48] LABS: ANISOCYTOSIS 2+; HYPOCHROMASIA 1+; PLATELET ESTIMATE NORMAL
[2019-12-27 07:00] VITALS: BP 103/61
[2019-12-27] MEDS: furosemide 40mg tablet PO SCH ×2 (08:00→20:00)
[2019-12-27] MEDS: K and/or MAG REPLACEMENT MC SCH ×2 (08:00→20:00)
[2019-12-27] MEDS: docusate sod 100mg capsule PO SCH ×2 (08:00→19:52)
[2019-12-27] MEDS: carvedilol 6.25mg tablet PO SCH ×2 (08:04→20:00)
[2019-12-27] MEDS: lisinopril 20mg tablet PO SCH (08:04)
[2019-12-27] MEDS: pantoprazole 40mg Tablet.DR PO SCH (08:04)
[2019-12-27] MEDS: lactobacillus rhamnosus 10,000 MMU CELLS/CAPSULE PO SCH ×2 (08:04→19:52)
[2019-12-27] MEDS: potassium Cl 20 mEq SR tablet PO SCH (08:04)
[2019-12-27] MEDS: nystatin 15 GM powder TP SCH ×2 (08:05→20:07)
[2019-12-27] MEDS: heparin, porcine 5000 units/ml vial SQ SCH ×2 (08:05→20:00)
[2019-12-27] MEDS: lactose-reduced food (Ensure Enlive) - 237ml bottle PO SCH ×3 (08:07→18:00)
[2019-12-27] MEDS: ipratropium/albuterol 3ml nebule NEB SCH ×3 (08:37→20:08)
[2019-12-27] MEDS: budesonide 0.5mg/2ml UD nebule IH SCH ×2 (08:37→20:08)
[2019-12-27 11:00] VITALS: BP 93/48
[2019-12-27 15:00] VITALS: BP 100/45
[2019-12-27] MEDS: HYDROcodone/acetaminophen 5mg/325mg tablet PO PRN (16:06)
[2019-12-27 16:24] LABS: HIV ANTIBODY 1&2 RAPID NON-REACTIVE (Neg)
--- NOTE | 2019-12-27 17:49 | NUR ---
[place]ee documentation: I have reviewed and agree with all interventions, assessments performed and documented by Regis TREVINO. [place] Medication Administration: For this medication-pass time frame, all medication were reviewed, dispensed, administered and documented per hospital policy by BELINDA Stacy.
[2019-12-27 18:00] VITALS: BP 95/42
--- NOTE | 2019-12-27 18:24 | NUR ---
Problems reprioritized. Patient report given, questions answered & plan of care reviewed with Suad RN. Patient stable at transfer of care.
--- NOTE | 2019-12-27 20:13 | NUR ---
notified meds held for low BP PAGER ID: [phone] MESSAGE: [id number] Mark Garcia: Holding Lasix and Coreg for BP 95/50. Lasix 40mg has been held for 2 days now for low BP just . -Suad [phone]
[2019-12-27] MEDS: insulin glargine (Lantus) pen - multi-dose SQ SCH (21:00)
[2019-12-27 22:00] VITALS: BP 85/45
--- NOTE | 2019-12-27 23:08 | NUR ---
PAGER ID: [phone] MESSAGE: [id number] Mark Garcia: BP 82/45, asymptomatic. Patient has pleural effusion moderate on right side and trace on left side. Chest tube R side. Coreg and Lasix was held. Any suggestions? -Suad [phone] Addendum: 12/28/19 at 0042 by Suad Concepcion RN called back and said to keep monitoring and no boluses because of the bilateral pleural effusion.
[2019-12-28 02:00] VITALS: BP 96/47
[2019-12-28 06:00] VITALS: BP 114/62
--- NOTE | 2019-12-28 06:09 | NUR ---
Patient in room PCU 3012. I have received report from BELINDA Borjas and had the opportunity to ask questions and assume patient care.
--- NOTE | 2019-12-28 06:15 | NUR ---
Problems reprioritized. Patient report given, questions answered & plan of care reviewed with Vika Jackson.
[2019-12-28 07:22] LABS: BASOPHILS # (AUTO) 0.1 X10'3 (0-0.2); BASOPHILS % (AUTO) 0.3 % (0-1); EOSINOPHILS # (AUTO) 0.1 X10'3 (0-0.9); EOSINOPHILS % (AUTO) 0.3 % (0-6); HEMATOCRIT 25.7 % (35.0-45.0); HEMOGLOBIN 8.2 g/dl (12.0-16.0); LYMPHOCYTES % (AUTO) 3.5 % (21-51); MEAN CORPUSCULAR HEMOGLOBIN 26.9 PG (27.0-31.0); MEAN CORPUSCULAR HGB CONC 31.8 g/dL (33.0-36.5); MEAN CORPUSCULAR VOLUME 84.6 FL (78-98); MEAN PLATELET VOLUME 7.5 FL (7.4-10.4); MONOCYTES # (AUTO) 1.1 X10'3 (0-0.9); MONOCYTES % (AUTO) 3.7 % (2-12); NEUTROPHILS # (AUTO) 26.4 X10'3 (1.8-7.7); NEUTROPHILS % (AUTO) 92.2 % (42-75); PLATELET COUNT 294 X10'3 (140-440); RED BLOOD COUNT 3.03 X10'6 (4.20-5.60); RED CELL DISTRIBUTION WIDTH 17.8 % (11.5-14.5)
[2019-12-28] MEDS: lactobacillus rhamnosus 10,000 MMU CELLS/CAPSULE PO SCH ×2 (07:26→20:57)
[2019-12-28] MEDS: pantoprazole 40mg Tablet.DR PO SCH (07:26)
[2019-12-28] MEDS: furosemide 40mg tablet PO SCH ×2 (07:26→20:58)
[2019-12-28] MEDS: docusate sod 100mg capsule PO SCH ×2 (07:26→20:57)
[2019-12-28] MEDS: potassium Cl 20 mEq SR tablet PO SCH (07:26)
[2019-12-28] MEDS: carvedilol 6.25mg tablet PO SCH ×2 (07:27→20:58)
[2019-12-28] MEDS: lisinopril 20mg tablet PO SCH (07:27)
[2019-12-28] MEDS: nystatin 15 GM powder TP SCH ×2 (07:27→20:58)
[2019-12-28] MEDS: lactose-reduced food (Ensure Enlive) - 237ml bottle PO SCH ×3 (07:27→18:00)
[2019-12-28 07:40] LABS: ALANINE AMINOTRANSFERASE 11 U/L (12-78); ALBUMIN 1.5 G/DL (3.4-5.0); ALBUMIN/GLOBULIN RATIO 0.3 (1.1-1.5); ALKALINE PHOSPHATASE 271 IU/L (46-116); ANION GAP 5 (8-16); ASPARTATE AMINO TRANSFERASE 18 U/L (10-37); BILIRUBIN,TOTAL 0.3 MG/DL (0.1-1.0); BLOOD UREA NITROGEN 23 MG/DL (7-18); CHLORIDE 105 MMOL/L (99-107); CREATININE 0.96 MG/DL (0.40-0.90); GLUCOSE 127 MG/DL (70-104); POTASSIUM 4.6 MMOL/L (3.5-5.1); SODIUM 142 MMOL/L (135-145); TOTAL CARBON DIOXIDE 32.1 MMOL/L (24-32); TOTAL PROTEIN 6.5 G/DL (6.4-8.2); eGFR 58 ML/MIN
--- NOTE | 2019-12-28 07:44 | NUR ---
PAGER ID: [phone] MESSAGE: [id number] Mark Garcia: ROSSY Critical WBC of 28.7 from 25.2 -archana [phone]
[2019-12-28] MEDS: K and/or MAG REPLACEMENT MC SCH ×2 (08:00→20:00)
[2019-12-28 08:02] LABS: ANISOCYTOSIS 1+; PLATELET ESTIMATE NORMAL; TOTAL CELLS COUNTED 100
[2019-12-28 08:03] LABS: HYPOCHROMASIA 1+
[2019-12-28 08:04] LABS: TOXIC GRANULATION 1+
[2019-12-28] MEDS: budesonide 0.5mg/2ml UD nebule IH SCH ×2 (08:05→20:16)
[2019-12-28] MEDS: ipratropium/albuterol 3ml nebule NEB SCH ×3 (08:05→20:16)
[2019-12-28] MEDS: heparin, porcine 5000 units/ml vial SQ SCH ×2 (09:14→20:57)
[2019-12-28] MEDS ORDERED: tPA-cathflo 2mg/2ml IV flush 4 MG in normal saline 100ml IV soln 50 ML ICATH ONE (10:10)
[2019-12-28 11:00] VITALS: BP 104/55
--- NOTE | 2019-12-28 13:15 | NUR ---
Pt sustained an unwitnessed fall noticed by EVS staff who then notified Resource Nurse. Resource nurse then asked for help from another staff nurse to help pt back to bed. Resource nurse suspects pt trying to get up to go to the bathroom as she slipped on her own stool. Continuous VS assessed. Resource nurse used tape to help seal area of chest tube. Pt stated that she did not hit her head but fell on her bottom. Other staff nurse notified angio and stated that a CXR of chest tube placement may be requested. CXR ordered. Pt resting comfortably in bed.
--- NOTE | 2019-12-28 13:19 | NUR ---
PAGER ID: [phone] MESSAGE: [id number]: Mark Garcia: FYLakshmi pt had an unwitnessed fall from sitting to standing, apparently fell on buttocks. Will get a repeat CXR for chest tube placement per srinivas-archana [phone]
[2019-12-28 15:00] VITALS: BP 91/45
--- NOTE | 2019-12-28 18:02 | NUR ---
Patient in room U 3012. I have received report from BELINDA Lundy and had the opportunity to ask questions and assume patient care. Addendum: 12/28/19 at 1807 by Renetta Whyte RN Problems reprioritized. Patient report given, questions answered & plan of care reviewed with BELINDA Lundy.
[2019-12-28] MEDS: insulin glargine (Lantus) pen - multi-dose SQ SCH (21:00)
[2019-12-28 23:00] VITALS: BP 100/45
[2019-12-29] VITALS (9 sets, daily range): BP systolic 79–115; BP diastolic 37–66
--- NOTE | 2019-12-29 03:54 | NUR ---
Problems reprioritized. Patient report given, questions answered & plan of care reviewed with
--- NOTE | 2019-12-29 03:54 | NUR ---
Patient in room PCU 3017. I have received report from Angela and had the opportunity to ask questions and assume patient care.
[2019-12-29 06:02] LABS: BASOPHILS # (AUTO) 0.1 X10'3 (0-0.2); BASOPHILS % (AUTO) 0.3 % (0-1); EOSINOPHILS # (AUTO) 0.1 X10'3 (0-0.9); EOSINOPHILS % (AUTO) 0.2 % (0-6); HEMATOCRIT 23.1 % (35.0-45.0); HEMOGLOBIN 7.2 g/dl (12.0-16.0); LYMPHOCYTES # (AUTO) 0.9 X10'3 (1.1-4.8); MEAN CORPUSCULAR HEMOGLOBIN 26.1 PG (27.0-31.0); MEAN CORPUSCULAR HGB CONC 31.2 g/dL (33.0-36.5); MEAN CORPUSCULAR VOLUME 83.6 FL (78-98); MEAN PLATELET VOLUME 7.7 FL (7.4-10.4); MONOCYTES # (AUTO) 1.1 X10'3 (0-0.9); MONOCYTES % (AUTO) 3.7 % (2-12); NEUTROPHILS # (AUTO) 26.6 X10'3 (1.8-7.7); NEUTROPHILS % (AUTO) 92.8 % (42-75); PLATELET COUNT 269 X10'3 (140-440); RED BLOOD COUNT 2.76 X10'6 (4.20-5.60); RED CELL DISTRIBUTION WIDTH 17.7 % (11.5-14.5)
[2019-12-29 06:10] LABS: WHITE BLOOD COUNT 28.6 X10'3 (4.5-11.0)
--- NOTE | 2019-12-29 06:21 | NUR ---
Patient in room PCU 3017. I have received report from Vika Chavez and had the opportunity to ask questions and assume patient care.
[2019-12-29 06:25] LABS: % IRON SATURATION 16 % (11-46); IRON 16 UG/DL (49-151); TOTAL IRON BINDING CAPACITY 103 UG/DL (259-388)
[2019-12-29 06:41] LABS: ALANINE AMINOTRANSFERASE 8 U/L (12-78); ALBUMIN 1.4 G/DL (3.4-5.0); ALBUMIN/GLOBULIN RATIO 0.3 (1.1-1.5); ALKALINE PHOSPHATASE 272 IU/L (46-116); ANION GAP 3 (8-16); ASPARTATE AMINO TRANSFERASE 16 U/L (10-37); BILIRUBIN,TOTAL 0.4 MG/DL (0.1-1.0); BLOOD UREA NITROGEN 25 MG/DL (7-18); BUN/CREATININE RATIO 25.3 (6.6-38.0); CALCIUM 9.1 MG/DL (8.5-10.1); CHLORIDE 103 MMOL/L (99-107); CREATININE 0.99 MG/DL (0.40-0.90); FERRITIN 628 NG/ML (8-252); GLUCOSE 112 MG/DL (70-104); MAGNESIUM 2.1 MG/DL (1.5-2.4); PHOSPHORUS 4.3 MG/DL (2.3-4.5); POTASSIUM 4.2 MMOL/L (3.5-5.1); SODIUM 142 MMOL/L (135-145); TOTAL CARBON DIOXIDE 36.4 MMOL/L (24-32); TOTAL PROTEIN 6.1 G/DL (6.4-8.2); eGFR 56 ML/MIN
[2019-12-29 06:48] LABS: ANISOCYTOSIS 1+; HYPOCHROMASIA 1+; PLATELET ESTIMATE NORMAL; TOTAL CELLS COUNTED 100
[2019-12-29 06:49] LABS: TOXIC GRANULATION 1+; TOXIC VACUOLATION FEW
--- NOTE | 2019-12-29 07:08 | NUR ---
PAGER ID: [phone] MESSAGE: [id number]: Mark Garcia: Critical WbC 28.6. Pt hbg is 7.2. Would you like to transfuse? -Renetta [phone]
[2019-12-29] MEDS: docusate sod 100mg capsule PO SCH ×2 (07:35→20:20)
[2019-12-29] MEDS: pantoprazole 40mg Tablet.DR PO SCH (07:37)
[2019-12-29] MEDS: lactobacillus rhamnosus 10,000 MMU CELLS/CAPSULE PO SCH ×2 (07:37→20:20)
[2019-12-29] MEDS: potassium Cl 20 mEq SR tablet PO SCH (07:37)
[2019-12-29] MEDS: lisinopril 20mg tablet PO SCH (07:38)
[2019-12-29] MEDS: carvedilol 6.25mg tablet PO SCH ×2 (07:38→20:00)
[2019-12-29] MEDS: furosemide 40mg tablet PO SCH ×2 (07:38→20:00)
[2019-12-29] MEDS: heparin, porcine 5000 units/ml vial SQ SCH ×2 (07:39→20:21)
[2019-12-29] MEDS: nystatin 15 GM powder TP SCH ×2 (07:39→20:22)
[2019-12-29 07:50] LABS: WHITE BLOOD COUNT 28.7 X10'3 (4.5-11.0)
[2019-12-29] MEDS: K and/or MAG REPLACEMENT MC SCH ×2 (08:00→20:00)
[2019-12-29] MEDS: lactose-reduced food (Ensure Enlive) - 237ml bottle PO SCH ×3 (08:00→18:00)
[2019-12-29] MEDS: budesonide 0.5mg/2ml UD nebule IH SCH ×2 (08:29→20:04)
[2019-12-29] MEDS: ipratropium/albuterol 3ml nebule NEB SCH ×3 (08:29→20:04)
[2019-12-29] MEDS ORDERED: iohexol 300mg/ml 100ml inj. ONE (11:22)
--- NOTE | 2019-12-29 11:45 | NUR ---
New orders from [facility] to transfuse 1PRBC if hgb is below 7. Recheck H&G at 1400
[2019-12-29 15:02] LABS: HEMATOCRIT 23.6 % (35.0-45.0); HEMOGLOBIN 7.4 g/dl (12.0-16.0); MEAN CORPUSCULAR HEMOGLOBIN 25.9 PG (27.0-31.0); MEAN CORPUSCULAR HGB CONC 31.2 g/dL (33.0-36.5); MEAN CORPUSCULAR VOLUME 83.1 FL (78-98); MEAN PLATELET VOLUME 7.5 FL (7.4-10.4); PLATELET COUNT 292 X10'3 (140-440); RED BLOOD COUNT 2.85 X10'6 (4.20-5.60); RED CELL DISTRIBUTION WIDTH 17.6 % (11.5-14.5)
[2019-12-29 15:08] LABS: WHITE BLOOD COUNT 29.6 X10'3 (4.5-11.0)
--- NOTE | 2019-12-29 15:27 | NUR ---
Notified [facility] of Critical WBC of 29.6 via phone. H&H stable
--- NOTE | 2019-12-29 15:32 | NUR ---
Reassessment: Pt PO 75% ensure enlive, providing about 788 calories daily and 45 g protein, and 25% average meals overall meeting needs. AOx3 Last BM 12/22, receiving routine bowel care. Visited at bedside, pt responded "yes" when asked if she enjoys ensure enlive and is drinking them. will continue ensure. Will continue to monitor for additional protein/kcal needs. Recommendations: 1) Continue heart healthy/carb controlled diet as medically indicated; consider liberalization from carb controlled given A1C 5.5 2) Ensure Enlive TIDWM 3) Routine bowel care 4) Scaled weights per rx Addendum: 12/29/19 at [address] Amended: Links added.
[2019-12-29] MEDS: HYDROcodone/acetaminophen 5mg/325mg tablet PO PRN (15:55)
--- NOTE | 2019-12-29 18:03 | NUR ---
Problems reprioritized. Patient report given, questions answered & plan of care reviewed with BELINDA Ford.
--- NOTE | 2019-12-29 18:10 | NUR ---
Patient in room PCU 3017. I have received report from Renetta TREVINO and had the opportunity to ask questions and assume patient care.
--- NOTE | 2019-12-29 18:24 | NUR ---
PAGER ID: [phone] MESSAGE: [id number]: Mark Garcia - BP is 80/39, MAP of 53 manually. Checked several times and it was in the 80s and 90 SBP. Would you like a bolus? Kindly advise -archana/spencer [phone]
--- NOTE | 2019-12-29 19:02 | NUR ---
Dr. Sherrell maldonado. BP 80/37 (49) and 79/42 (56). will continue to monitor.
[2019-12-29] MEDS ORDERED: normal saline 500ml IV soln 500 ML IV ONE (19:10)
--- NOTE | 2019-12-29 19:10 | NUR ---
Dr. Wynne called, made aware of blood pressures. ordered Coreg and Lasix to be held and a 500cc normal saline bolus and if blood pressure is still low, may repeat x1. Will continue to monitor.
[2019-12-29] MEDS: insulin glargine (Lantus) pen - multi-dose SQ SCH (21:00)
[2019-12-30 02:00] VITALS: BP 99/57
[2019-12-30 05:50] LABS: BASOPHILS # (AUTO) 0.1 X10'3 (0-0.2); BASOPHILS % (AUTO) 0.2 % (0-1); EOSINOPHILS # (AUTO) 0.1 X10'3 (0-0.9); EOSINOPHILS % (AUTO) 0.3 % (0-6); HEMATOCRIT 23.6 % (35.0-45.0); HEMOGLOBIN 7.4 g/dl (12.0-16.0); LYMPHOCYTES # (AUTO) 0.9 X10'3 (1.1-4.8); LYMPHOCYTES % (AUTO) 3.2 % (21-51); MEAN CORPUSCULAR HEMOGLOBIN 26.1 PG (27.0-31.0); MEAN CORPUSCULAR HGB CONC 31.2 g/dL (33.0-36.5); MEAN CORPUSCULAR VOLUME 83.6 FL (78-98); MEAN PLATELET VOLUME 7.5 FL (7.4-10.4); MONOCYTES % (AUTO) 3.8 % (2-12); NEUTROPHILS # (AUTO) 25.3 X10'3 (1.8-7.7); NEUTROPHILS % (AUTO) 92.5 % (42-75); PLATELET COUNT 303 X10'3 (140-440); RED BLOOD COUNT 2.82 X10'6 (4.20-5.60); RED CELL DISTRIBUTION WIDTH 17.8 % (11.5-14.5)
[2019-12-30 06:02] LABS: WHITE BLOOD COUNT 27.3 X10'3 (4.5-11.0)
[2019-12-30 06:04] LABS: ALANINE AMINOTRANSFERASE 9 U/L (12-78); ALBUMIN 1.5 G/DL (3.4-5.0); ALBUMIN/GLOBULIN RATIO 0.3 (1.1-1.5); ALKALINE PHOSPHATASE 254 IU/L (46-116); ANION GAP 2 (8-16); ASPARTATE AMINO TRANSFERASE 17 U/L (10-37); BILIRUBIN,TOTAL 0.3 MG/DL (0.1-1.0); BLOOD UREA NITROGEN 21 MG/DL (7-18); BUN/CREATININE RATIO 20.6 (6.6-38.0); CALCIUM 8.7 MG/DL (8.5-10.1); CHLORIDE 102 MMOL/L (99-107); CREATININE 1.02 MG/DL (0.40-0.90); GLUCOSE 131 MG/DL (70-104); PHOSPHORUS 3.8 MG/DL (2.3-4.5); POTASSIUM 3.8 MMOL/L (3.5-5.1); SODIUM 141 MMOL/L (135-145); TOTAL CARBON DIOXIDE 37.5 MMOL/L (24-32); TOTAL PROTEIN 6.2 G/DL (6.4-8.2); eGFR 54 ML/MIN
--- NOTE | 2019-12-30 06:14 | NUR ---
Problems reprioritized. Patient report given, questions answered & plan of care reviewed with Elgin TREVINO.
--- NOTE | 2019-12-30 06:19 | NUR ---
Patient in room PCU 3017. I have received report from Liliana TREVINO and had the opportunity to ask questions and assume patient care.
[2019-12-30 06:44] LABS: TOTAL CELLS COUNTED 100
[2019-12-30 06:45] LABS: ANISOCYTOSIS 1+; HYPOCHROMASIA 1+; MICROCYTOSIS 1+; PLATELET ESTIMATE NORMAL; POLYCHROMASIA FEW; STOMATOCYTES 1+
[2019-12-30] MEDS: ipratropium/albuterol 3ml nebule NEB SCH ×2 (06:58→15:25)
[2019-12-30] MEDS: budesonide 0.5mg/2ml UD nebule IH SCH (06:58)
[2019-12-30 07:00] VITALS: BP 99/86
[2019-12-30] MEDS: amox tr/potassium clavulanate 875/125mg TAB PO SCH ×2 (07:53→17:44)
[2019-12-30] MEDS: pantoprazole 40mg Tablet.DR PO SCH (07:54)
[2019-12-30] MEDS: lactobacillus rhamnosus 10,000 MMU CELLS/CAPSULE PO SCH ×2 (07:54→19:21)
[2019-12-30] MEDS: heparin, porcine 5000 units/ml vial SQ SCH ×2 (07:54→19:21)
[2019-12-30] MEDS: docusate sod 100mg capsule PO SCH ×2 (07:54→19:20)
[2019-12-30] MEDS: nystatin 15 GM powder TP SCH ×2 (07:54→19:20)
[2019-12-30] MEDS: potassium Cl 20 mEq SR tablet PO SCH (07:54)
[2019-12-30] MEDS: furosemide 40mg tablet PO SCH ×2 (07:58→19:34)
[2019-12-30] MEDS: lisinopril 20mg tablet PO SCH (07:58)
[2019-12-30] MEDS: lactose-reduced food (Ensure Enlive) - 237ml bottle PO SCH ×3 (07:58→18:16)
[2019-12-30] MEDS: K and/or MAG REPLACEMENT MC SCH ×2 (08:00→19:22)
[2019-12-30] MEDS: carvedilol 6.25mg tablet PO SCH ×2 (08:00→19:34)
[2019-12-30] MEDS: HYDROcodone/acetaminophen 5mg/325mg tablet PO PRN ×2 (08:01→22:42)
[2019-12-30 11:00] VITALS: BP 93/48
--- NOTE | 2019-12-30 14:41 | NUR ---
Sent page to Dr. Prescott: PAGER ID: [phone] MESSAGE: [id number] Mark Garcia: Angio called and told me they will do the lung biopsy on Wednesday. Can I put in a carb controlled diet for this patient to have dinner? Thank you, Sonia [phone]
[2019-12-30 15:00] VITALS: BP 90/47
--- NOTE | 2019-12-30 18:13 | NUR ---
Problems reprioritized. Patient report given, questions answered & plan of care reviewed with Suad TREVINO.
[2019-12-30 18:46] VITALS: BP 105/49
[2019-12-30] MEDS: insulin glargine (Lantus) pen - multi-dose SQ SCH (21:00)
[2019-12-30 22:00] VITALS: BP 93/48
[2019-12-31 02:00] VITALS: BP 88/38
--- NOTE | 2019-12-31 05:44 | NUR ---
Held Coreg and Maria Guadalupe @2000 for low BP of /
--- NOTE | 2019-12-31 05:46 | NUR ---
Student documentation: I have reviewed and agree with all interventions, assessments performed and documented by Spencer Falcon from [facility].
--- NOTE | 2019-12-31 05:47 | NUR ---
Student Medication Administration: For this medication-pass time frame, all medication were reviewed, dispensed, administered and documented per hospital policy by Spencer from [facility].
[2019-12-31 05:58] LABS: BASOPHILS % (AUTO) 0.1 % (0-1); EOSINOPHILS % (AUTO) 0.2 % (0-6); HEMATOCRIT 23.3 % (35.0-45.0); HEMOGLOBIN 7.3 g/dl (12.0-16.0); LYMPHOCYTES # (AUTO) 1.1 X10'3 (1.1-4.8); MEAN CORPUSCULAR HEMOGLOBIN 26.2 PG (27.0-31.0); MEAN CORPUSCULAR HGB CONC 31.3 g/dL (33.0-36.5); MEAN CORPUSCULAR VOLUME 83.8 FL (78-98); MEAN PLATELET VOLUME 7.7 FL (7.4-10.4); MONOCYTES # (AUTO) 1.2 X10'3 (0-0.9); MONOCYTES % (AUTO) 4.5 % (2-12); NEUTROPHILS # (AUTO) 24.6 X10'3 (1.8-7.7); NEUTROPHILS % (AUTO) 91.2 % (42-75); PLATELET COUNT 314 X10'3 (140-440); RED BLOOD COUNT 2.78 X10'6 (4.20-5.60); RED CELL DISTRIBUTION WIDTH 17.7 % (11.5-14.5)
[2019-12-31 06:01] LABS: ALANINE AMINOTRANSFERASE 10 U/L (12-78); ALBUMIN 1.5 G/DL (3.4-5.0); ALBUMIN/GLOBULIN RATIO 0.3 (1.1-1.5); ALKALINE PHOSPHATASE 260 IU/L (46-116); ANION GAP 3 (8-16); ASPARTATE AMINO TRANSFERASE 15 U/L (10-37); BILIRUBIN,TOTAL 0.3 MG/DL (0.1-1.0); BLOOD UREA NITROGEN 19 MG/DL (7-18); CALCIUM 8.4 MG/DL (8.5-10.1); CHLORIDE 102 MMOL/L (99-107); GLUCOSE 121 MG/DL (70-104); MAGNESIUM 2.1 MG/DL (1.5-2.4); PHOSPHORUS 3.3 MG/DL (2.3-4.5); SODIUM 141 MMOL/L (135-145); TOTAL CARBON DIOXIDE 35.7 MMOL/L (24-32); TOTAL PROTEIN 6.3 G/DL (6.4-8.2); eGFR 56 ML/MIN
--- NOTE | 2019-12-31 06:16 | NUR ---
Problems reprioritized. Patient report given, questions answered & plan of care reviewed with Vika Scott.
--- NOTE | 2019-12-31 06:21 | NUR ---
Problems reprioritized. Patient report given, questions answered & plan of care reviewed with BELINDA Cohen.
--- NOTE | 2019-12-31 06:47 | NUR ---
Patient in room PCU 3017. I have received report from Suad TREVINO and had the opportunity to ask questions and assume patient care.
[2019-12-31 07:00] VITALS: BP 108/55
[2019-12-31 07:23] LABS: TOTAL CELLS COUNTED 100
[2019-12-31 07:24] LABS: ANISOCYTOSIS 3+; PLATELET ESTIMATE NORMAL; TOXIC GRANULATION 1+
[2019-12-31] MEDS: amox tr/potassium clavulanate 875/125mg TAB PO SCH ×2 (07:53→17:57)
[2019-12-31] MEDS: lactobacillus rhamnosus 10,000 MMU CELLS/CAPSULE PO SCH ×2 (07:53→19:44)
[2019-12-31] MEDS: docusate sod 100mg capsule PO SCH ×2 (07:54→19:44)
[2019-12-31] MEDS: pantoprazole 40mg Tablet.DR PO SCH (07:54)
[2019-12-31] MEDS: nystatin 15 GM powder TP SCH ×2 (07:54→19:47)
[2019-12-31] MEDS: furosemide 40mg tablet PO SCH (08:00)
[2019-12-31] MEDS: carvedilol 6.25mg tablet PO SCH ×2 (08:00→19:46)
[2019-12-31] MEDS: lisinopril 20mg tablet PO SCH (08:00)
[2019-12-31] MEDS: K and/or MAG REPLACEMENT MC SCH ×2 (08:00→20:00)
[2019-12-31] MEDS: heparin, porcine 5000 units/ml vial SQ SCH ×2 (08:00→19:43)
[2019-12-31] MEDS: lactose-reduced food (Ensure Enlive) - 237ml bottle PO SCH ×3 (08:01→18:00)
[2019-12-31] MEDS: potassium Cl 20 mEq SR tablet PO SCH (08:01)
[2019-12-31] MEDS: budesonide 0.5mg/2ml UD nebule IH SCH ×2 (08:41→19:44)
[2019-12-31] MEDS: ipratropium/albuterol 3ml nebule NEB SCH ×3 (08:41→19:44)
[2019-12-31 11:00] VITALS: BP 116/54
[2019-12-31 15:00] VITALS: BP 102/49
[2019-12-31 18:00] VITALS: BP 96/56
--- NOTE | 2019-12-31 18:14 | NUR ---
Problems reprioritized. Patient report given, questions answered & plan of care reviewed with Jai TREVINO.
--- NOTE | 2019-12-31 18:14 | NUR ---
Patient in room PCU 3017. I have received report from Sonia TREVINO and had the opportunity to ask questions and assume patient care.
[2019-12-31] MEDS: furosemide 20MG tablet PO SCH (19:44)
[2019-12-31] MEDS: insulin glargine (Lantus) pen - multi-dose SQ SCH (21:00)
[2019-12-31 22:00] VITALS: BP 97/46
[2020-01-01 02:00] VITALS: BP 104/58
[2020-01-01 06:00] VITALS: BP 112/60
--- NOTE | 2020-01-01 06:12 | NUR ---
Problems reprioritized. Patient report given, questions answered & plan of care reviewed with Renetta TREVINO.
[2020-01-01 06:16] LABS: BASOPHILS # (AUTO) 0.1 X10'3 (0-0.2); BASOPHILS % (AUTO) 0.2 % (0-1); EOSINOPHILS % (AUTO) 0.1 % (0-6); HEMATOCRIT 24.1 % (35.0-45.0); HEMOGLOBIN 7.6 g/dl (12.0-16.0); LYMPHOCYTES % (AUTO) 3.5 % (21-51); MEAN CORPUSCULAR HEMOGLOBIN 26.5 PG (27.0-31.0); MEAN CORPUSCULAR HGB CONC 31.6 g/dL (33.0-36.5); MEAN CORPUSCULAR VOLUME 83.9 FL (78-98); MEAN PLATELET VOLUME 7.7 FL (7.4-10.4); MONOCYTES # (AUTO) 1.3 X10'3 (0-0.9); MONOCYTES % (AUTO) 4.3 % (2-12); NEUTROPHILS # (AUTO) 27.1 X10'3 (1.8-7.7); NEUTROPHILS % (AUTO) 91.9 % (42-75); PLATELET COUNT 334 X10'3 (140-440); RED BLOOD COUNT 2.87 X10'6 (4.20-5.60); RED CELL DISTRIBUTION WIDTH 17.6 % (11.5-14.5)
--- NOTE | 2020-01-01 06:16 | NUR ---
Patient in room PCU 3017. I have received report from Jai TREVINO and had the opportunity to ask questions and assume patient care.
[2020-01-01 06:18] LABS: ALANINE AMINOTRANSFERASE 9 U/L (12-78); ALBUMIN 1.5 G/DL (3.4-5.0); ALBUMIN/GLOBULIN RATIO 0.3 (1.1-1.5); ALKALINE PHOSPHATASE 233 IU/L (46-116); ANION GAP 8 (8-16); ASPARTATE AMINO TRANSFERASE 19 U/L (10-37); BILIRUBIN,TOTAL 0.6 MG/DL (0.1-1.0); BLOOD UREA NITROGEN 18 MG/DL (7-18); BUN/CREATININE RATIO 18.8 (6.6-38.0); CALCIUM 8.8 MG/DL (8.5-10.1); CHLORIDE 102 MMOL/L (99-107); CREATININE 0.96 MG/DL (0.40-0.90); GLUCOSE 90 MG/DL (70-104); MAGNESIUM 2.2 MG/DL (1.5-2.4); PHOSPHORUS 3.8 MG/DL (2.3-4.5); SODIUM 142 MMOL/L (135-145); TOTAL CARBON DIOXIDE 31.6 MMOL/L (24-32); TOTAL PROTEIN 6.5 G/DL (6.4-8.2); eGFR 58 ML/MIN
[2020-01-01 06:22] LABS: WHITE BLOOD COUNT 29.5 X10'3 (4.5-11.0)
--- NOTE | 2020-01-01 06:27 | NUR ---
Dr Renner notified of critical WBC 29.5, no new orders received.
[2020-01-01 06:56] LABS: TOTAL CELLS COUNTED 100
[2020-01-01 06:57] LABS: ANISOCYTOSIS 1+; PLATELET ESTIMATE NORMAL
[2020-01-01 06:58] LABS: TOXIC GRANULATION 1+
[2020-01-01] MEDS: K and/or MAG REPLACEMENT MC SCH (07:04)
[2020-01-01] MEDS: potassium Cl 20 mEq SR tablet PO SCH (07:07)
[2020-01-01] MEDS: docusate sod 100mg capsule PO SCH (07:07)
[2020-01-01] MEDS: lactobacillus rhamnosus 10,000 MMU CELLS/CAPSULE PO SCH (07:08)
[2020-01-01] MEDS: furosemide 20MG tablet PO SCH (07:08)
[2020-01-01] MEDS: pantoprazole 40mg Tablet.DR PO SCH (07:08)
[2020-01-01] MEDS: carvedilol 6.25mg tablet PO SCH (07:08)
[2020-01-01] MEDS: HYDROcodone/acetaminophen 5mg/325mg tablet PO PRN (07:11)
[2020-01-01] MEDS: nystatin 15 GM powder TP SCH (07:11)
[2020-01-01] MEDS: lactose-reduced food (Ensure Enlive) - 237ml bottle PO SCH ×2 (07:17→13:03)
[2020-01-01] MEDS: amox tr/potassium clavulanate 875/125mg TAB PO SCH (07:46)
[2020-01-01] MEDS: ipratropium/albuterol 3ml nebule NEB SCH (08:47)
[2020-01-01] MEDS: budesonide 0.5mg/2ml UD nebule IH SCH (08:47)
--- NOTE | 2020-01-01 10:42 | NUR ---
Spoke to Dr Leung in person regarding this patient, says there will be no lung biopsy today so it is okay to feed the patient, is aware of current WBC, wants RN to call [facility] to see if they will send up a previous lung biopsy report, wants OO2 saturation above 90%, will continue to monitor the patient closely.
--- NOTE | 2020-01-01 10:47 | NUR ---
Called [facility] ([phone]) and was told that Dr Song had called this morning regarding this patient and the most recent pathology report and was told that it is not ready yet.
[2020-01-01 11:00] VITALS: BP 105/46
[2020-01-01] MEDS ORDERED: AMOX-580 PO (12:03)
[2020-01-01] MEDS ORDERED: FURO20TA4 PO (12:03)
--- NOTE | 2020-01-01 13:04 | NUR ---
Stable for discharge per MD order, all discharge instructions reviewed with patient and all questions answered, pt educated to f/u with PCP and Dr Small as directed, pt stated that she had those phone numbers, called the patients daughter and went over discharge instructions with her over the phone and answered all questions. The patients daughter stated that she would be available to pickle processor the patient at 1430 to 1500. will continue to monitor the patient closely.
--- NOTE | 2020-01-01 15:11 | NUR ---
Called patients daughter Demetria who stated she is on her way right now to pick her mom up from [place]
--- NOTE | 2020-01-01 15:51 | NUR ---
Stable for discharge per MD order, all discharge instructions reviewed with patient and called the patients daughter and educated the daughter as well, both the patient and the daughter, Demetria, are aware that she needs to follow up with Dr Small in one week. Demetria stated that her mom had seen Dr Small before and that they had his number. The patient is aware that home health will be following her and that she has been referred to [facility], tele discontinued and PIV discontinued, all belongings collected and sent with the patient, left the unit in wheelchair with nurses aide. Addendum: 01/01/20 at 1559 by Lisbet Barakat RN Discharge delayed due to transportation.
== END 2020-01-01 15:51 | disposition home health service (06) | DRG 871 ==
LOC: ER 19:01 → ED HOLD 12-20 03:01 → CICU 2S 12-20 04:15 → PCU 3S 12-21 13:20
PROVIDERS: ADMIT Internal Medicine Critical Care Medicine; ATTEND Internal Medicine Critical Care Medicine
PROC: 06HY33Z Insertion of Infusion Device into Lower Vein, Percutaneous Approach (ICD-10-PCS; 2019-12-19)
PROC: 0W9930Z Drainage of Right Pleural Cavity with Drainage Device, Percutaneous Approach (ICD-10-PCS; principal; 2019-12-25)
PROC: 3E0L3GC Introduction of Other Therapeutic Substance into Pleural Cavity, Percutaneous Approach (ICD-10-PCS; 2019-12-26)
PROC: BW241ZZ Computerized Tomography (CT Scan) of Chest and Abdomen using Low Osmolar Contrast (ICD-10-PCS; 2019-12-29)
DX: A41.9 Sepsis, unspecified organism (principal); J86.9 Pyothorax without fistula; E43 Unspecified severe protein-calorie malnutrition; J18.9 Pneumonia, unspecified organism; C38.4 Malignant neoplasm of pleura; J94.2 Hemothorax; J44.0 Chronic obstructive pulmonary disease with (acute) lower respiratory infection; J91.8 Pleural effusion in other conditions classified elsewhere; C79.51 Secondary malignant neoplasm of bone; G93.40 Encephalopathy, unspecified; E04.9 Nontoxic goiter, unspecified; E11.9 Type 2 diabetes mellitus without complications; I11.0 Hypertensive heart disease with heart failure; F32.9 Major depressive disorder, single episode, unspecified; W18.09XA Striking against other object with subsequent fall, initial encounter; D64.9 Anemia, unspecified; F41.9 Anxiety disorder, unspecified; E07.9 Disorder of thyroid, unspecified; F17.210 Nicotine dependence, cigarettes, uncomplicated; M54.9 Dorsalgia, unspecified; I48.91 Unspecified atrial fibrillation; I50.9 Heart failure, unspecified; Z66 Do not resuscitate; Z82.5 Family history of asthma and other chronic lower respiratory diseases; Z83.3 Family history of diabetes mellitus; Z90.710 Acquired absence of both cervix and uterus; Y93.89 Activity, other specified; Y92.89 Other specified places as the place of occurrence of the external cause; Y99.8 Other external cause status; Z79.899 Other long term (current) drug therapy; Z68.22 Body mass index [BMI] 22.0-22.9, adult
CPT/HCPCS: 32557; 36415; 36556; 70450; 71045; 71250; 71260; 72125; 76604; 80053; 80202; 81001; 81003; 82553; 82570; 82728; 82948; 83540; 83550; 83605; 83615; 83735; 83880; 84100; 84145; 84157; 84300; 84439; 84443; 84484; 85007; 85025; 85027; 85610; 85730; 86703; 87040; 87070; 87081; 87635; 88108; 88305; 88341; 88342; 89051; 93005; 94640; 94760; 96365; 97110; 97112; 97116; 97161; 97530; 99291; C9113; G0378; J0456; J0696; J1644; J1815; J2997; J3370; J7030; J7040; J7626; Q9967